=== PATIENT | male | born 1980 | race Caucasian/White ===

== ENCOUNTER → 2020-07-04 14:18 | Outpatient (CLI) | payer BC, SELFPAY ==
--- NOTE | ~2020-07-04 | XR_ITS ---
EXAMINATION: XR_[id number]_CR DATE: 07/04/2020 14:45 INDICATION: Chronic neck pain for greater than 3 months. TECHNIQUE: 4 views of cervical spine were obtained. COMPARISON: Cervical spine radiographs 06/13/2019 FINDINGS: There is 8 degrees levocurvature of cervicothoracic spine. Vertebral body heights are jose carlos l. There is mildly decreased disc height at C5-C6 and C6-C7. There is multilevel facet joint osteoart hritis, moderate on the left at C4-C5 and C5-C6. No central canal stenosis or prevertebral soft tissu e swelling. IMPRESSION: 1. Mild cervical spondylosis. Reviewed, dictated and finalized at location A.
== END ==
PROVIDERS: PCP Nurse Practitioner Family; Visit Provider Nurse Practitioner Family
DX: M47.892 Other spondylosis, cervical region (principal)
CPT/HCPCS: 72040

== ENCOUNTER 2021-06-10 15:27 | Emergency (ER) | payer BC, SELFPAY ==
[2021-06-10 15:37] VITALS: BP 140/89; PULSE 88; RESP 16; TEMP 36.6; O2SAT 99
[2021-06-10 15:43] VITALS: BP 140/89; PULSE 88; RESP 16; TEMP 36.6; O2SAT 99
--- NOTE | 2021-06-10 15:43 | ED.WOUNDLAC ---
HPI - Wound/Laceration General Chief Complaint: Wound/Laceration Stated Complaint: stapel removal Time Seen by Provider: 06/10/21 15:43 Source: patient, family and RN notes reviewed Mode of arrival: ambulatory Limitations: no limitations History of Present Illness HPI narrative: 40-year-old male [facility] to have 11 maryam removed from the left side of his head. Patient states that about 2 weeks ago a 16 foot 2X6 board fell over and hit him in the head causing laceration to the left side of his scalp.Patient states that he did not lose consciousness but he was dazed for a second, had maryam placed in the emergency room at [facility]. Patient denies any residual headaches or any other complaints. Location: scalp Related Data Home Medications Medication Instructions Recorded Confirmed albuterol sulfate INHALATION 06/10/21 montelukast mg 06/10/21 pantoprazole PO 06/10/21 Allergies Allergy/AdvReac Type Severity Reaction Status Date / Time No Known Allergies Allergy Verified 07/29/17 18:24 Review of Systems Review of Systems: CONSTITUTIONAL: Denies fever, chills, or sweats. EYES: Denies visual changes, redness, or discharge. ENT: Denies rhinorrhea, congestion, sore throat, or otalgia. CARDIOVASCULAR: Denies chest pain, palpitations, or edema. RESPIRATORY: Denies cough or dyspnea. GASTROINTESTINAL: Denies abdominal pain, nausea, vomiting, or diarrhea. GENITOURINARY: Denies dysuria or hematuria. SKIN: Denies rash or itching.healed laceration to left side of head parietal region with 11 maryam placed about 2 weeks ago MUSCULOSKELETAL: Denies back pain, joint pain, or myalgia. NEUROLOGIC: Denies headache, numbness, or weakness. PSYCHIATRIC: Denies anxiety or depression. All systems reviewed & are unremarkable except as noted in HPI and below PMFSH Past Medical History Medical History (Updated 06/12/21 @ 15:19 by Georgette Iraheta NP) Asthma C. difficile enteritis Diverticulitis GERD (gastroesophageal reflux disease) Seasonal allergies Sinus infection Surgical History Surgical History (Updated 06/12/21 @ 15:10 by Georgette Iraheta NP) History of rectal surgery perirectal abscess surgical procedure Hx of hand surgery fracture and repair of right middle finger Family History Family History (Updated 06/12/21 @ 15:15 by Georgette Iraheta NP) Mother Cerebrovascular accident Breast cancer Grandparent Acute myocardial infarction Father Rheumatoid arthritis Social History Social History (Updated 06/12/21 @ 15:15 by Georgette Iraheta NP) Smoking status: Heavy tobacco smoker Tobacco type: cigarettes Alcohol intake: current Alcohol use details: rare Substance use: never Living arrangements: alone Gender identity (if verbalized by the patient): Male Comments At time of signature, agree with nursing past medical, surgical, social and family history. There is no relevant family history pertinent to the presenting complaint Exam Narrative: GENERAL: Well-appearing, well-nourished, and in no acute distress. HEAD: Normocephalic, atraumatic. EYES: PERRLA and EOMI.no nystagmus ENT: Nares clear, no rhinorrhea or epistaxis. Mucous membranes moist.TM's normal with good light reflex, throat pink with no lesions exudates or tonsil enlargement. NECK: Supple.no lymphadenopathy CHEST: Clear to auscultation. No respiratory distress. HEART: Regular rate and rhythm. No murmur heard. Normal peripheral pulses. ABDOMEN: Soft, nontender, nondistended, normal active bowel sounds. EXTREMITIES: Normal range of motion. No edema. SKIN: Warm, dry, no rash. NEURO: No focal deficits. Alert and oriented x3.Healed head laceration to left parietal region with removal of 11 maryam completed, states minimal tenderness on palpation, no gaping or any drainage at wound site some scabbing note. Course Vital Signs Vital signs: Vital Signs Temperature 36.6 C 06/10/21 15:37 Pulse Rate 88
== END 2021-06-10 16:10 | disposition home or self-care (01) ==
PROVIDERS: Emergency Provider Registered Nurse
DX: S01.01XD Laceration without foreign body of scalp, subsequent encounter (principal); W20.8XXD Other cause of strike by thrown, projected or falling object, subsequent encounter; J45.909 Unspecified asthma, uncomplicated; K21.9 Gastro-esophageal reflux disease without esophagitis; Z86.19 Personal history of other infectious and parasitic diseases
CPT/HCPCS: 99211; G0463

== ENCOUNTER 2021-10-23 22:14 | Emergency (ER) | payer BC, SELFPAY ==
--- NOTE | ~2021-10-23 | XR_ITS ---
EXAMINATION: XR hand LT min 3V INDICATION: Left hand pain TECHNIQUE: Three views of the left hand are obtained. COMPARISON: None available FINDINGS: There is no fracture, dislocation, or subluxation. No radiopaque foreign body isn't. The sheila int spaces are normal. There is a soft tissue defect between the first and second fingers with associ ated underlying soft tissue swelling. IMPRESSION: 1. Soft tissue defect and underlying soft tissue swelling between the first and second fingers withou t acute osseous abnormality. Reviewed, dictated and finalized at location A. [employer] IMPRESSION: 1. Soft tissue defect and underlying soft tissue swelling between the first and second fingers without acute osseous abnormality.
[2021-10-23 22:24] VITALS: BP 154/81; PULSE 81; RESP 18; TEMP 36.7; O2SAT 100
[2021-10-24 01:38] VITALS: BP 161/89; PULSE 86; RESP 16; O2SAT 100
[2021-10-24] MEDS: HYDROcodone/acetaminophen (*CRX) 5-325 MG TABLET 1 TAB PO (02:49)
--- NOTE | 2021-10-24 04:57 | ED.GENADULT ---
HPI - General Adult General Chief complaint: Animal Bite Stated complaint: dog bite Time Seen by Provider: 10/24/21 02:18 History of Present Illness HPI narrative: Patient is a 40-year-old gentleman who presents the emergency department with chief complaint of dog bite. The patient states that he was watching a dog is up-to-date on its immunizations and reports that he is up-to-date on his tetanus and the dog nipped his left hand. The patient reports he has several lacerations reports that it is painful with movement patient reports no other injuries. Related Data Home Medications Medication Instructions Recorded Confirmed albuterol sulfate INHALATION 06/10/21 montelukast mg 06/10/21 pantoprazole PO 06/10/21 Allergies Allergy/AdvReac Type Severity Reaction Status Date / Time No Known Allergies Allergy Verified 07/29/17 18:24 Review of Systems Review of Systems: A 10 system review of systems was completed on the patient and is negative except for what is stated in the HPI. Nursing and ancillary documentation was reviewed. [facility] Past Medical History Medical History Asthma C. difficile enteritis Diverticulitis GERD (gastroesophageal reflux disease) Seasonal allergies Sinus infection Surgical History Surgical History History of rectal surgery perirectal abscess surgical procedure Hx of hand surgery fracture and repair of right middle finger Family History Family History Mother Cerebrovascular accident Breast cancer Grandparent Acute myocardial infarction Father Rheumatoid arthritis Social History Social History Smoking status: Heavy tobacco smoker Tobacco type: cigarettes Alcohol intake: current Alcohol use details: rare Substance use: never Gender identity (if verbalized by the patient): Male Exam Narrative: GENERAL: Well-appearing, well-nourished, and in no acute distress. HEAD: Normocephalic, atraumatic. EYES: PERRLA and EOMI. ENT: Nares clear, no rhinorrhea or epistaxis. Mucous membranes moist. NECK: Supple. CHEST: Clear to auscultation. No respiratory distress. HEART: Regular rate and rhythm. No murmur heard. Normal peripheral pulses. ABDOMEN: Soft, nontender, nondistended, normal active bowel sounds. EXTREMITIES: Normal range of motion. No edema. There are 3 2 cm lacerations to the left hand 1 in the space between the first and second digit the other one on the thenar eminence and the other 1 medial to any laceration on the thenar eminence SKIN: Warm, dry, no rash. NEURO: No focal deficits. Alert and oriented x3. PSYCH: Normal mood and affect. Course Course Emergency Course: Plain film x-ray of the left hand showed no evidence of fracture or foreign body It is a large area of tissue defect in the hand the wounds were loosely approximated Vital Signs Vital signs: Vital Signs Temperature 36.7 C 10/23/21 22:24 Pulse Rate 81 10/23/21 22:24 Respiratory Rate 18 10/23/21 22:24 Blood Pressure 154/81 H 10/23/21 22:24 Pulse Oximetry 100 10/23/21 22:24 Temperature 36.7 C 10/23/21 22:24 Pulse Rate 86 10/24/21 01:38 Respiratory Rate 16 10/24/21 01:38 Blood Pressure 161/89 H 10/24/21 01:38 Pulse Oximetry 100 10/24/21 01:38 Procedures Laceration Laceration 1: Date: 10/24/21 Time: 04:59 Site: hand Side (If applicable): left Size (cm): 2 Description: stellate Depth: simple, single layer Local Anesthetic: lidocaine 1% Amount of anesthesia used (mL): 3 Pre-repair: wound explored and irrigated ====== Skin Level ====== Skin layer closed with: nylon Size (cm): 4-0 Number of sutures: 3 Technique:
[2021-10-24 05:21] VITALS: PULSE 71; RESP 14
[2021-10-24] MEDS: AMOXICILLIN/CLAVULANATE K 875-125 MG TAB 1 TABLET PO (05:21)
== END 2021-10-24 05:21 | disposition home or self-care (01) ==
PROVIDERS: Emergency Provider Emergency Medicine; PCP Nurse Practitioner Family
DX: S61.452A Open bite of left hand, initial encounter (principal); F17.210 Nicotine dependence, cigarettes, uncomplicated; W54.0XXA Bitten by dog, initial encounter
CPT/HCPCS: 12002; 73130; 99283; A9270

== ENCOUNTER 2022-10-06 07:45 | Outpatient (CLI) | payer BC, SELFPAY | END 2022-10-06 07:46 | disposition home or self-care (01) | LOC: ANHAUDIO 07:45 | PROVIDERS: PCP Internal Medicine; Visit Provider Internal Medicine | DX: H93.19 Tinnitus, unspecified ear (principal) | CPT/HCPCS: 92552; 92556; 92567 ==

== ENCOUNTER 2022-11-02 11:52 | Outpatient (CLI) | payer BC, SELFPAY ==
--- NOTE | 2022-11-10 17:06 | WPDHOMESLEEP ---
Sleep Study - Home Unattended Date of Study: 11/02/22 Ordering Provider: Brady Maddox DO Interpreting Provider: Flor Onofre DO Home Sleep Study Type: Watch KEVYN Height: 1.68 m Weight: 103.419 kg Body Mass Index: 36.8 Neck Circumference (inches): 16.75 Reason for Sleep Study Witnessed apneas, daytime hypersomnia Sleep History The patient is a 41-year-old male with asthma, anxiety, GERD, seasonal allergies and tobacco use that had a sleep study ordered for evaluation of sleep apnea. The patient had a polysomnogram on 04/07/2016 that showed an AHI of 5.7. It was recommended that he have a PAP Titration. He had a SNAP done on 10/24/2019 that showed an AHI of 15.6. He never started treatment. *The patient did not fill out the sleep history forms.* [facility] Past Medical History Medical History Asthma C. difficile enteritis Diverticulitis Excessive somnolence disorder Generalized anxiety disorder GERD (gastroesophageal reflux disease) Seasonal allergies Sinus infection Sleep apnea Surgical History Surgical History History of rectal surgery perirectal abscess surgical procedure Hx of hand surgery fracture and repair of right middle finger Family History Family History Mother Cerebrovascular accident Breast cancer Grandparent Acute myocardial infarction Father Rheumatoid arthritis Social History Social History Smoking status: Heavy tobacco smoker Tobacco type: cigarettes Alcohol intake: current Alcohol use details: rare Substance use: never Lack of Transportation: No Lack of Food: Never True Current Housing: I Have Housing Concerned About Future Housing: No Difficulty Paying Gas/Electric Bills: No Difficulty Paying for Meds: No Currently Unemployed: No Education: High School Diploma/GED Difficulty w/ Childcare or Family Care: No Living arrangements: alone Gender identity (if verbalized by the patient): Male Medications Home Medications Medication Instructions Recorded Confirmed Type albuterol sulfate 90 mcg/actuation inhalation 06/10/21 10/01/22 History aerosol inhaler pantoprazole 40 mg tablet,delayed PO 06/10/21 10/01/22 History release clonazepam 0.5 mg tablet 0.25 - 0.5 mg PO BID PRN anxiety 08/20/22 10/01/22 Rx #30 tabs tadalafil 5 mg tablet 5 mg PO DAILY 08/20/22 10/01/22 History Sleep Procedure The sleep study was completed using OntodiaPAT a technically adequate device with seven channels: peripheral arterial tone, actigraphy, body position, snore, respiratory movement, pulse oximetry, sleep staging, and heart rate. Prior to using the device, the patient received verbal and written instructions for its application and was provided with the help desk phone number for additional telephonic instruction with 24-hour availability of qualified personnel to answer questions. The study was scored using CMS guidelines. Sleep Architecture The patient had a total recording time of 8 hours 4 minutes and total sleep time of 5 hours 4 minutes. The sleep efficiency was 62.95%. Sleep latency was 22 minutes and REM latency was 326 minute. The patient had 26 awakenings. The patient spent 90.16% of total sleep time in light sleep, 2.3% of total sleep time in deep sleep and 7.54% of total sleep time in REM sleep. The patient spent 23.5 minutes, 7.7% total sleep time in the supine position. Respiratory Analysis The patient had an overall AHI 47.6 and a central apnea index of 0. No Madi-Mcarthur respirations were seen. Oximetry Data The patient had an average oxygen saturation of 94% with a minimum of 84% and a maximum 99%. The patient had 231 desaturations that were 4% or greater resulting in an oxygen desaturation index 46.8.
[2022-11-10 17:15] VITALS: BMI 36.8
== END 2022-11-03 13:14 | disposition home or self-care (01) ==
PROVIDERS: PCP Internal Medicine; Visit Provider Internal Medicine
DX: G47.10 Hypersomnia, unspecified (principal); G47.33 Obstructive sleep apnea (adult) (pediatric)
CPT/HCPCS: 95800

== ENCOUNTER 2023-02-25 15:18 | Emergency (ER) | payer BC, SELFPAY ==
[2023-02-25 15:25] VITALS: BP 145/91; PULSE 87; RESP 16; TEMP 37.2; O2SAT 98
--- NOTE | 2023-02-25 15:42 | ED.URI ---
HPI - URI/Sore Throat General Chief Complaint: Upper Respiratory Infection Stated Complaint: SORE THROAT History of Present Illness HPI Narrative: Pt is a 42 y/o male, presents to with 3 week hx of waxing and waning URI symptoms, including nasal congestion, rhinorrhea, post nasal drip and sore/dry throat. He denies fevers at any time since his symptoms began. He does work outdoors and endorses seasonal allergies in the past. He has used Afrin at times and Saline nasal spray with minimal relief. He denies any other modifying factors. Related Data Home Medications Medication Instructions Recorded Confirmed albuterol sulfate 90 mcg/actuation inhalation 06/10/21 12/09/22 aerosol inhaler pantoprazole 40 mg tablet,delayed PO 06/10/21 12/09/22 release tadalafil 5 mg tablet 5 mg PO DAILY 08/20/22 12/09/22 Allergies Allergy/AdvReac Type Severity Reaction Status Date / Time No Known Allergies Allergy Verified 02/25/23 15:24 Review of Systems Constitutional: Comments: negative ENT: Comments: rhinorrhea, nasal congestion, sore throat off and on Respiratory: Comments: cough intermittently PMFSH Past Medical History Medical History (Updated 02/25/23 @ 15:51 by INEZ Diaz) Asthma C. difficile enteritis Diverticulitis Excessive somnolence disorder Generalized anxiety disorder GERD (gastroesophageal reflux disease) Seasonal allergies Sinus infection Sleep apnea Surgical History Surgical History History of rectal surgery perirectal abscess surgical procedure Hx of hand surgery fracture and repair of right middle finger Family History Family History Mother Cerebrovascular accident Breast cancer Grandparent Acute myocardial infarction Father Rheumatoid arthritis Social History Social History Smoking status: Heavy tobacco smoker Tobacco type: cigarettes Alcohol intake: current Alcohol use details: rare Substance use: never Lack of Transportation: No Lack of Food: Never True Current Housing: I Have Housing Concerned About Future Housing: No Difficulty Paying Gas/Electric Bills: No Difficulty Paying for Meds: No Currently Unemployed: No Education: High School Diploma/GED Difficulty w/ Childcare or Family Care: No Living arrangements: alone Gender identity (if verbalized by the patient): Male Exam Const: General: healthy appearing, no acute distress and alert HENMT: Head: normal to inspection Ears: TM abnormal (TM's are retracted bilaterally, no effusion, no erythema) Face/Nose/Sinus: Normal external nose present and Normal nares present Face and sinus: normal facial exam and sinuses nontender Mouth: Yes Normal oral and palatal mucosa present Throat: posterior oropharynx normal and uvula midline Other: mild pharyngeal injection Eyes: Conjunctivae: conjunctivae normal Pupils: Equal, round and reactive pupils present EOM: EOMs intact bilaterally Direct Ophthalmoscopy: no photophobia Neck: Neck: normal visual inspection, no lymphadenopathy and no meningeal signs Resp: Effort & Inspection: normal respiratory effort Auscultation: clear to auscultation bilaterally Cardio: Rate: regular rate Rhythm: regular rhythm Skin: General skin exam: normal color Rashes: no rashes Neuro: General: patient oriented x3, moves all extremities, no meningeal signs and no focal motor deficits Cranial nerves: Yes Nystagmus not present Speech: normal speech Gait exam (Neuro): Normal gait present Extrem: General: normal to inspection Course Course Level of Care: [facility] Visit ([id number]) Vital Signs Vital signs: Vital Signs Temperature 37.2 C 02/25/23 15:25 Pulse Rate 87 02/25/23 15:25 Respiratory Rate 16 02/25/23 15:25 Blood Pressure 145/
== END 2023-02-25 15:58 | disposition home or self-care (01) ==
PROVIDERS: Emergency Provider Nurse Practitioner Family; PCP Internal Medicine
DX: T78.40XA Allergy, unspecified, initial encounter (principal); R09.82 Postnasal drip; F17.210 Nicotine dependence, cigarettes, uncomplicated; J45.909 Unspecified asthma, uncomplicated; K21.9 Gastro-esophageal reflux disease without esophagitis
CPT/HCPCS: 87081; 87880; 99213; G0463

== ENCOUNTER 2023-03-28 13:40 | Emergency (ER) | payer BC, SELFPAY ==
--- NOTE | ~2023-03-28 | XR_ITS ---
EXAMINATION: XR chest 2V 03/28/2023 14:18 INDICATION: Productive cough PROCEDURE: 2 view chest COMPARISON: 11/29/2006 FINDINGS: The lungs are clear. The cardiomediastinal silhouette is within normal limits. There are no pleural effusions. There is no pneumothorax suspected. IMPRESSION: 1: NO ACUTE CARDIOPULMONARY DISEASE. Reviewed, dictated and finalized at location A.
[2023-03-28 13:46] VITALS: BP 176/94; PULSE 74; RESP 16; TEMP 36.3; O2SAT 98
--- NOTE | 2023-03-28 13:50 | ECG_ITS ---
Measurements Intervals [place] Rate: 71 P: -12 [place]: 146 QRS: 70 QRSD: 112 T: 1 QT: 386 QTc: 420 Interpretive Statements SINUS RHYTHM MODERATE INTRAVENTRICULAR CONDUCTION DELAY [110+ ms QRS DURATION] NONSPECIFIC T-WAVE ABNORMALITY WITH PROMINENT U WAVE ABNORMAL ECG NO PREVIOUS ECG AVAILABLE FOR COMPARISON Electronically Signed On 03-29-2023 11:13:40 CDT by Eliazar Fowler M.D.
[2023-03-28 13:54] LABS: Glucose Point of Care 125 mg/dl (65-105)
[2023-03-28 14:29] LABS: Basophils Absolute Auto 0.1 K/mm3 (0.0-0.1); Basophils Percent Auto 0.5 % (0.2-1.2); Eosinophils Percent Auto 0.3 % (0-4.4); Hematocrit 52.6 % (42.0-52.0); Immature Granulocyte Absolute 0.05 K/mm3 (0.00-0.031); Immature Granulocyte Percent A 0.4 % (0-0.5); Lymphocytes Absolute Auto 4.94 K/mm3 (0.9-3.2); Lymphocytes Percent Auto 34.9 % (18.3-44.2); Mean Corpuscular HGB Conc 34.2 g/dl (32-36); Mean Corpuscular Hemoglobin 31.4 pg (26-34); Mean Corpuscular Volume 91.6 fl (80-100); Mean Platelet Volume 9.7 fl (7.4-10.4); Monocytes Percent Auto 7.1 % (2.6-8.5); Neutrophils Percent Auto 56.8 % (45.5-73.1); Platelet Count Result 336 k/mm3 (150-375); Red Blood Count 5.74 M/mm3 (4.6-6.20); Red Cell Distribution Width 13.2 % (11.5-14.5); White Blood Count 14.1 K/mm3 (4.5-10.0)
[2023-03-28 14:39] LABS: Alanine Aminotransferase 39 U/L (6-50); Albumin Level 4.4 g/dL (3.5-5.1); Alkaline Phosphatase 49 U/L (38-126); Anion Gap 7 mmol/L (8-16); Aspartate Amino Transferase 25 U/L (17-59); Bilirubin,Total 0.6 mg/dL (0.2-1.3); Blood Urea Nitrogen 13 mg/dL (9-20); Calcium 8.6 mg/dL (8.4-10.2); Carbon Dioxide 28 mmol/L (22-30); Chloride 103 mmol/L (98-107); Estimated CRCL calculation 120 ml/min; Estimated Glomerular Filt Rate > 60; Glucose 118 mg/dL (65-110); Lipase 53 U/L (23-300); Potassium 3.3 mmol/L (3.4-5.0); Sodium 138 mmol/L (137-145)
[2023-03-28 14:46] LABS: Prothrombin Time 13.3 Seconds (11.1-14.7)
[2023-03-28 14:47] LABS: Partial Thromboplastin Time 28.7 SECONDS (22.3-36.8)
[2023-03-28 14:50] LABS: Troponin I < 0.012 ng/mL (0.000-0.034)
[2023-03-28 16:25] VITALS: BP 163/94; PULSE 71; RESP 17; O2SAT 100
--- NOTE | 2023-03-28 16:28 | ED.GENADULT ---
HPI - General Adult General Chief complaint: Unspecified Stated complaint: I'm not feeling well. Time Seen by Provider: 03/28/23 16:15 History of Present Illness HPI narrative: Patient is a 42-year-old male here for evaluation of jitteriness, anxiety, restlessness x2 days. Patient states that he was treated for a sinus infection with antibiotics and steroids. He has been taking these medicines as prescribed, and on day 2 of the prednisone he started to feel jittery, however his upper respiratory infectious symptoms have improved. He denies any chest pain, shortness of breath, fevers or chills, nausea or vomiting. He has some degree of chronic abdominal pain due to IBS, no worse than usual. No diarrhea or constipation. Related Data Home Medications Medication Instructions Recorded Confirmed albuterol sulfate 90 mcg/actuation 90 mcg inhalation USEASDIRECTD 06/10/21 03/19/23 aerosol inhaler pantoprazole 40 mg tablet,delayed 40 mg PO BID 06/10/21 03/19/23 release tadalafil 5 mg tablet 5 mg PO DAILY 08/20/22 03/19/23 sertraline 25 mg tablet 25 mg PO DAILY 02/25/23 03/19/23 testosterone cypionate 200 mg/mL 200 mg IM ONCE 03/19/23 03/19/23 intramuscular oil Allergies Allergy/AdvReac Type Severity Reaction Status Date / Time No Known Allergies Allergy Verified 03/28/23 16:25 Review of Systems Review of Systems: Gen: Reports jitteriness Eyes: Denies eye pain or visual change ENT: Reports congestion Respiratory: Denies shortness of breath or cough CV: Denies chest pain or palpitations GI: Denies abdominal pain nausea, emesis or diarrhea : denies burning, urgency, frequency or hematuria Musculoskeletal: Denies back pain or muscle pain Neuro: Denies numbness, tingling, weakness or focal weakness Skin: Denies rash Except as documented, all other systems reviewed and negative [facility] Past Medical History Medical History Asthma C. difficile enteritis Diverticulitis Excessive somnolence disorder Generalized anxiety disorder GERD (gastroesophageal reflux disease) Seasonal allergies Sinus infection Sleep apnea Surgical History Surgical History History of rectal surgery perirectal abscess surgical procedure Hx of hand surgery fracture and repair of right middle finger Family History Family History Mother Cerebrovascular accident Breast cancer Grandparent Acute myocardial infarction Father Rheumatoid arthritis Social History Social History Smoking status: Heavy tobacco smoker Tobacco type: cigarettes Alcohol intake: current Alcohol use details: rare Substance use: never Lack of Transportation: No Lack of Food: Never True Current Housing: I Have Housing Concerned About Future Housing: No Difficulty Paying Gas/Electric Bills: No Difficulty Paying for Meds: No Currently Unemployed: No Education: High School Diploma/GED Difficulty w/ Childcare or Family Care: No Living arrangements: alone Gender identity (if verbalized by the patient): Male Exam Narrative: APPEARANCE: Well appearing, no pain in distress, well-nourished. Head: Normocephalic and atraumatic. EYES: PERRLA/EOMI, conjunctivae clear NOSE: No nasal drainage EARS: External ear normal in appearance THROAT: Oropharynx is clear. Mucous membranes are moist. NECK: Supple. No adenopathy, no masses. RESPIRATORY: Airway patent, respirations nonlabored. Clear to auscultation bilaterally, no rales, rhonchi, wheezing. CARDIOVASCULAR: Regular rate and rhythm without murmurs, rubs, or gallops. ABDOMINAL: Normoactive bowel sounds. Soft, nontender, nondistended. No rebound tenderness or guarding. MUSCULOSKELETAL: Extremities are warm and well-perfused. Moves all extremities well. No
[2023-03-28 16:58] VITALS: BP 154/85; PULSE 72; RESP 16; O2SAT 98
== END 2023-03-28 16:58 | disposition home or self-care (01) ==
PROVIDERS: Emergency Medicine; Emergency Provider Physician Assistant; PCP Internal Medicine
DX: R45.1 Restlessness and agitation (principal); F41.9 Anxiety disorder, unspecified; T38.0X5A Adverse effect of glucocorticoids and synthetic analogues, initial encounter; J45.909 Unspecified asthma, uncomplicated; K58.9 Irritable bowel syndrome, unspecified; K21.9 Gastro-esophageal reflux disease without esophagitis; G47.30 Sleep apnea, unspecified; F17.210 Nicotine dependence, cigarettes, uncomplicated; I45.89 Other specified conduction disorders; R94.31 Abnormal electrocardiogram [ECG] [EKG]
CPT/HCPCS: 36415; 71046; 80053; 82948; 83690; 84484; 85025; 85610; 85730; 93005; 99284

== ENCOUNTER 2023-10-07 08:55 | Outpatient (CLI) | payer BC, SELFPAY ==
[2023-10-07 12:05] LABS: Basophils Absolute Auto 0.1 K/mm3 (0.0-0.1); Basophils Percent Auto 0.8 % (0.2-1.2); Eosinophils Absolute Auto 0.1 K/mm3 (0-0.3); Eosinophils Percent Auto 1.6 % (0-4.4); Hematocrit 53.4 % (42.0-52.0); Hemoglobin 17.8 g/dL (14.0-18.0); Immature Granulocyte Absolute 0.02 K/mm3 (0.00-0.031); Immature Granulocyte Percent A 0.3 % (0-0.5); Lymphocytes Absolute Auto 2.27 K/mm3 (0.9-3.2); Lymphocytes Percent Auto 29.7 % (18.3-44.2); Mean Corpuscular HGB Conc 33.3 g/dl (32-36); Mean Corpuscular Hemoglobin 30.6 pg (26-34); Mean Corpuscular Volume 91.8 fl (80-100); Mean Platelet Volume 10.2 fl (7.4-10.4); Monocytes Absolute Auto 0.9 K/mm3 (0.1-0.6); Monocytes Percent Auto 11.1 % (2.6-8.5); Neutrophils Absolute Auto 4.3 K/mm3 (1.3-6.7); Neutrophils Percent Auto 56.5 % (45.5-73.1); Platelet Count Result 301 k/mm3 (150-375); Red Blood Count 5.82 M/mm3 (4.6-6.20); Red Cell Distribution Width 13.2 % (11.5-14.5); White Blood Count 7.7 K/mm3 (4.5-10.0)
[2023-10-07 12:13] LABS: Alanine Aminotransferase 25 U/L (6-50); Albumin Level 4.4 g/dL (3.5-5.1); Alkaline Phosphatase 51 U/L (38-126); Anion Gap 7 mmol/L (8-16); Aspartate Amino Transferase 36 U/L (17-59); Bilirubin,Total 0.7 mg/dL (0.2-1.3); Blood Urea Nitrogen 12 mg/dL (9-20); Calcium 9.6 mg/dL (8.4-10.2); Carbon Dioxide 28 mmol/L (22-30); Chloride 105 mmol/L (98-107); Cholesterol 205 mg/dL (0-200); Estimated Glomerular Filt Rate > 60; Glucose 114 mg/dL (65-110); HDL Direct 33 mg/dL; Potassium 4.3 mmol/L (3.4-5.0); Sodium 140 mmol/L (137-145); Triglycerides 83 mg/dL (<150)
[2023-10-07 12:23] LABS: LDL Cholesterol Direct 138 mg/dL
[2023-10-07 21:00] LABS: Hemoglobin A1C 5.6 % (<5.7)
== END 2023-10-07 08:56 | disposition home or self-care (01) ==
PROVIDERS: PCP Internal Medicine; Visit Provider Nurse Practitioner
DX: Z13.220 Encounter for screening for lipoid disorders (principal); Z13.29 Encounter for screening for other suspected endocrine disorder; R73.9 Hyperglycemia, unspecified
CPT/HCPCS: 36415; 80053; 80061; 83036; 85025

== ENCOUNTER 2023-10-18 13:23 | Emergency (ER) | payer BC, SELFPAY ==
[2023-10-18 13:52] VITALS: BP 138/86; PULSE 71; RESP 18; O2SAT 98
--- NOTE | 2023-10-18 13:52 | ED.EAR ---
HPI - Ear Problem General Chief complaint: Ear Stated complaint: can't hear/left ear, sinus prob,slick Time Seen by Provider: 10/18/23 13:52 Source: patient and RN notes reviewed Mode of arrival: ambulatory Limitations: no limitations History of Present Illness HPI Narrative: 42-year-old male presents with concern for left ear pain, decreased hearing, sinus congestion. Reports symptoms started on , he started having allergy symptoms and then when he flew on a plane he had sudden pain in his left ear. He reports since then he has had ear pain. He denies drainage. Reports he has been taking ipwh-wby-avneziy medications without much relief MD Complaint: ear pain Related Data Home Medications Medication Instructions Recorded Confirmed pantoprazole 40 mg tablet,delayed 40 mg PO BID 06/10/21 10/18/23 release fexofenadine-pseudoephedrine ER 1 tablet PO .every other day 10/07/23 10/18/23 180 mg-240 mg tablet,ext.release 24 hr (Dora-D 24 Hour) testosterone cypionate 200 mg/mL 200 mg IM WEEKLY 10/07/23 10/18/23 intramuscular oil Allergies Allergy/AdvReac Type Severity Reaction Status Date / Time No Known Allergies Allergy Verified 10/18/23 13:46 Review of Systems Review of Systems: CONSTITUTIONAL: Denies malaise, chills, sweats, or fever. EYES: Denies visual changes, redness, or discharge. ENT: Reports rhinorrhea, congestion, left ear pain CARDIOVASCULAR: Denies chest pain, palpitations, or edema. RESPIRATORY: Denies cough. Denies dyspnea. GASTROINTESTINAL: Denies abdominal pain, nausea, vomiting, diarrhea SKIN: Denies rash or itching. MUSCULOSKELETAL: Denies myalgia. NEUROLOGIC: Denies headache. All systems reviewed & are unremarkable except as noted in HPI and below PMFSH Past Medical History Medical History Asthma C. difficile enteritis Diverticulitis Excessive somnolence disorder Generalized anxiety disorder GERD (gastroesophageal reflux disease) Seasonal allergies Sinus infection Sleep apnea Surgical History Surgical History History of rectal surgery perirectal abscess surgical procedure Hx of hand surgery fracture and repair of right middle finger Family History Family History Mother Cerebrovascular accident Breast cancer Grandparent Acute myocardial infarction Father Rheumatoid arthritis Lung cancer Social History Social History Smoking status: Heavy tobacco smoker Tobacco type: cigarettes Alcohol intake: current Alcohol use details: rare Substance use: never Lack of Transportation: No Lack of Food: Never True Current Housing: I Have Housing Concerned About Future Housing: No Difficulty Paying Gas/Electric Bills: No Difficulty Paying for Meds: No Currently Unemployed: No Education: High School Diploma/GED Difficulty w/ Childcare or Family Care: No Living arrangements: alone Gender identity (if verbalized by the patient): Male Comments At time of signature, agree with nursing past medical, surgical, social and family history. There is no relevant family history pertinent to the presenting complaint Exam Narrative: GENERAL: Well-appearing, well-nourished, and in no acute distress. HEAD: Normocephalic EYES: PERRLA, conjunctivae clear ENT: Nares clear. Mucous membranes moist. TM erythematous bilaterally, bulging on the left; no tragal tenderness. Oropharynx not erythematous without lesions. Tonsils not enlarged and without exudate, no drooling, no hoarseness, no trismus, uvula midline. NECK: Supple. No lymphadenopathy CHEST: Clear to auscultation, breath sounds equal. No wheezing, rhonchi, rales, or stridor. No respiratory distress, speaks in full sentences. HEART: Regular rate and rhythm. No murmur heard.
== END 2023-10-18 14:07 | disposition home or self-care (01) ==
PROVIDERS: Emergency Provider Nurse Practitioner; PCP Internal Medicine
DX: H66.92 Otitis media, unspecified, left ear (principal); F17.210 Nicotine dependence, cigarettes, uncomplicated; J45.909 Unspecified asthma, uncomplicated; K21.9 Gastro-esophageal reflux disease without esophagitis; F41.1 Generalized anxiety disorder
CPT/HCPCS: 99213; G0463

== ENCOUNTER 2024-01-25 00:39 | Day surgery (SDC) | payer BC, SELFPAY ==
--- NOTE | 2024-01-12 14:30 | SUR.PREOP ---
Report to the Outpatient Waiting Room, entrance under the green pavilion located off [facility], at time 0830 on date 01/25/24. Planned Procedure Time: 1030. Time changes happen often and if your time is changed the preop area will call you the afternoon before. - You and your visitor will be asked to self-screen and do not enter if you have any COVID symptoms. - A mask is optional within the hospital at this time. Patients may have clear liquids (water, carbonated beverages, clear teas, apple juice) until 3 hours prior to surgery with a maximum of 20 ounces. - NO CLEAR LIQUIDS AFTER 0730 - No food from midnight until time of surgery - Infants may have breast milk until 4 hours before surgery, infant formula 6 hours prior to surgery. - Children will be allowed to drink immediately following surgery. If applicable, please bring a bottle or sippy cup to assist with drinking. Juice, water, soda, and popsicles are readily available. For infants on formula, please bring formula the day of surgery. Pacifiers are allowed. Take the following medications with a SIP of water the morning of surgery: BRING ALBUTEROL INHALER WITH YOU THE DAY OF SURGERY DO NOT STOP ANY OF YOUR OTHER PRESCRIPTION MEDICATIONS PRIOR TO SURGERY ?EXCEPT THE FOLLOWING Medications to discontinue per physician N/A Date to take last dose Please no make-up, nail ivorian, hairspray, perfume, deodorant, or body powder the day of surgery. No jewelry (including any body piercings) or valuables the day of surgery, leave them at home. Please take a shower or bath the night before, or the morning of, surgery with an antibacterial soap. Wear comfortable, loose fitting clothing. Children are encouraged to wear pajamas. - Jewelry must be removed prior to entering the operating room. Rings and piercings that are not removed may be cut off. - The hospital will not accept responsibility for valuables. - Please leave all valuables, including medications, at home the day of surgery. If you are going home after surgery, a licensed line haul driver must drive you home. - NO public transportation without another adult if you receive anesthesia. - We recommend that an adult stay with you for 24 hours following discharge. - We also recommend that you do not drive, make important decision, drink alcoholic beverages, or take any drugs that were not prescribed by your health care provider for at least 24 hours after your discharge time. For Pediatric surgeries, we recommend two adults accompany the child home. Follow any additional instructions given to you from your surgeon. If you or anyone in your household have experienced Covid symptoms in the past week, please notify your surgeon or the nurse liaison at the phone number below for possible testing. Telephone instructions given to LEXI KAY and asked if any additional questions and then verbalized understanding. Patient advised to call surgeon office or pre surgery nurse liaison [phone] if any additional questions.
[2024-01-12 14:42] VITALS: BMI 35.2
--- NOTE | 2024-01-24 17:01 | PM.IMHP ---
H&P: HPI History of Present Illness Date/Time: 01/24/24 17:01 Chief Complaint: lower lip mucocele Narrative: planned procedure Review of Systems Review of Systems: All systems reviewed & are unremarkable except as noted in HPI and below PMFSH Past Medical History Medical History Asthma C. difficile enteritis Diverticulitis Excessive somnolence disorder Generalized anxiety disorder GERD (gastroesophageal reflux disease) Seasonal allergies Sinus infection Sleep apnea Surgical History Surgical History History of rectal surgery perirectal abscess surgical procedure Hx of hand surgery fracture and repair of right middle finger Family History Family History Mother Cerebrovascular accident Breast cancer Grandparent Acute myocardial infarction Father Rheumatoid arthritis Lung cancer Social History Social History Smoking packs per day: 1 Smoking cigarettes per day: 20.0 Years smoked: 20 Smoking pack-years: 20.00 Smoking status: Heavy tobacco smoker Tobacco type: cigarettes Alcohol intake: current Alcohol use details: rare Substance use: never Lack of Transportation: No Lack of Food: Never True Current Housing: I Have Housing Concerned About Future Housing: No Difficulty Paying Gas/Electric Bills: No Difficulty Paying for Meds: No Currently Unemployed: No Education: High School Diploma/GED Difficulty w/ Childcare or Family Care: No Living arrangements: alone Gender identity (if verbalized by the patient): Male Spiritual care concerns: No Meds Home Medications and Allergies Home Medications Medication Instructions Recorded Confirmed Type clonazepam 0.5 mg tablet 0.25 - 0.5 mg PO BID PRN anxiety 03/29/23 01/12/24 Rx #30 tabs albuterol sulfate 90 mcg/actuation 1 inh inhalation Q4H PRN shortness 09/22/23 01/12/24 Rx aerosol inhaler of breath or wheezing #8.5 grams fexofenadine-pseudoephedrine ER 1 tablet PO .every other day 10/07/23 01/12/24 History 180 mg-240 mg tablet,ext.release 24 hr (Dora-D 24 Hour) testosterone cypionate 200 mg/mL 200 mg IM WEEKLY 10/07/23 01/12/24 History intramuscular oil azelastine 137 mcg (0.1 %) nasal 1 spray intranasal BID 10/26/23 01/12/24 History spray aerosol cetirizine 10 mg tablet (Wal-Zyr 10 mg PO DAILY 10/26/23 01/12/24 History (cetirizine)) pantoprazole 40 mg tablet,delayed 40 mg PO DAILY 01/10/24 01/12/24 History release tadalafil 5 mg tablet 5 mg PO DAILY 01/12/24 01/12/24 History Allergies Allergy/AdvReac Type Severity Reaction Status Date / Time No Known Allergies Allergy Verified 01/10/24 14:21 Exam Narrative: lower lip mucocele Assessment and Plan Assessment and plan (1) Mucocele of lower lip: Code(s): K13.0 - Diseases of lips Status: Acute Assessment and Plan: plan or excision of lower lip mucocele. Risks discussed bleeding infection damage to surrounding structures need for further procedures recurrence of mucocele change in cosmetic appearance. Need for time off work time off school and her risk of narcotic use. Patient voiced understanding and agreed. Will need needle-tip Bovie very small bipolar. LMA okay.
[2024-01-25] VITALS (8 sets, daily range): BP systolic 101–149; BP diastolic 54–85; PULSE 61–77; RESP 16–18; TEMP 36.3–36.8; O2SAT 97–100; BMI 35.8
--- NOTE | 2024-01-25 07:19 | WPDHPUPDATE1 ---
History and Physical Update Update Date/Time: 01/25/24 07:19 History and Physical has been reviewed, including an updated exam of the patient. There are NO changes in the patient's condition. Risks, benefits, and alternatives have been discussed and questions answered. Patient agrees to proceed with procedure.
[2024-01-25] MEDS: LACTATED RINGERS 1,000 ML 30 ML IV CONT ×2 (09:55→13:37)
--- NOTE | 2024-01-25 11:02 | WPDANESEPPF ---
Anes - Initial Pre Proc Eval Procedure: Operation Date: 01/25/24 11:30 Proposed Procedures p Excision of Mucocele Lower Lip - Shady Silver MD Date/Time: 01/25/24 11:02 Surgeon: Shady Silver MD Pre Op Diagnosis: Lower Lip Mucocele Patient Data Age: 43 Gender: M Height: 1.68 m Weight: 100.7 kg Last Vital Signs Temp 36.8 C 01/25/24 09:45 Pulse 72 01/25/24 09:45 Resp 16 01/25/24 09:45 BP 149/85 H 01/25/24 09:45 Pulse Ox 100 01/25/24 09:45 O2 Del Method Room Air 01/25/24 09:45 Allergies Allergy/AdvReac Type Severity Reaction Status Date / Time No Known Allergies Allergy Verified 01/25/24 10:12 Home Medications Medication Instructions Recorded Confirmed Type clonazepam 0.5 mg tablet 0.25 - 0.5 mg PO BID PRN anxiety 03/29/23 01/12/24 Rx #30 tabs albuterol sulfate 90 mcg/actuation 1 inh inhalation Q4H PRN shortness 09/22/23 01/12/24 Rx aerosol inhaler of breath or wheezing #8.5 grams fexofenadine-pseudoephedrine ER 1 tablet PO .every other day 10/07/23 01/12/24 History 180 mg-240 mg tablet,ext.release 24 hr (Dora-D 24 Hour) testosterone cypionate 200 mg/mL 200 mg IM WEEKLY 10/07/23 01/12/24 History intramuscular oil azelastine 137 mcg (0.1 %) nasal 1 spray intranasal BID 10/26/23 01/12/24 History spray aerosol cetirizine 10 mg tablet (Wal-Zyr 10 mg PO DAILY 10/26/23 01/12/24 History (cetirizine)) pantoprazole 40 mg tablet,delayed 40 mg PO DAILY 01/10/24 01/12/24 History release tadalafil 5 mg tablet 5 mg PO DAILY 01/12/24 01/12/24 History Patient hx anesthesia problems: none Family hx anesthesia problems: none Results Review: All pre-operative results and documents have been reviewed as part of the pre-operative evaluation. [facility] Past Medical History Medical History Asthma C. difficile enteritis Diverticulitis Excessive somnolence disorder Generalized anxiety disorder GERD (gastroesophageal reflux disease) Seasonal allergies Sinus infection Sleep apnea Surgical History Surgical History History of rectal surgery perirectal abscess surgical procedure Hx of hand surgery fracture and repair of right middle finger Family History Family History Mother Cerebrovascular accident Breast cancer Grandparent Acute myocardial infarction Father Rheumatoid arthritis Lung cancer Social History Social History Smoking packs per day: 1 Smoking cigarettes per day: 20.0 Years smoked: 20 Smoking pack-years: 20.00 Smoking status: Heavy tobacco smoker Tobacco type: cigarettes Alcohol intake: current Alcohol use details: rare Substance use: never Lack of Transportation: No Lack of Food: Never True Current Housing: I Have Housing Concerned About Future Housing: No Difficulty Paying Gas/Electric Bills: No Difficulty Paying for Meds: No Currently Unemployed: No Education: High School Diploma/GED Difficulty w/ Childcare or Family Care: No Living arrangements: alone Gender identity (if verbalized by the patient): Male Spiritual care concerns: No Anes - Eval Final PreProcedure Day of Procedure 01/25/24 11:02 Patient weight: obese Heart: regular rate and rhythm Lungs: clear to auscultation Airway: Mallampati scale class II Neurological: alert and oriented Last oral intake: >/= 8 hours ASA classification: III Emergent: no Anesthetic plan: proceed Anesthesia type and monitoring: general LMA and standard monitoring Results Review: All pre-operative results and documents have been reviewed as part of the pre-operative evaluation. Informed Consent: The patient's anesthetic plan and its attendant risks and benefits were discussed with the patient/family/POA. Questions were solicited and
--- NOTE | 2024-01-25 11:40 | SUR.PREOP ---
1140- Patient to restroom to void and discussed procedure start time delay. Patient verbalized understanding and denying additional needs.
[2024-01-25] MEDS: ceFAZolin 2 GM/D5W 50 ML 2 GM/50 ML BAG IVPB (12:16)
[2024-01-25] MEDS: LIDO 1%/EPINEPHRINE 1:100,000 50 ML VIAL 10 ML INFILTRATE (12:16)
--- NOTE | 2024-01-25 13:38 | SUR.PHASEI ---
1338: Simple mask removed.
--- NOTE | 2024-01-25 13:51 | P.OP_ITS ---
Procedure Note - Detailed Date of Procedure 01/25/24 Pre-op Diagnosis Lower Lip Mucocele Post-op Diagnosis Same Procedure Performed excision of lower lip mucocele Surgeon Shady Silver MD Anesthesia General ( LMA) Findings indications see above findings several cm mucocele lobulated left lower lip excised minimal bleeding good closure. No complications. Description of Procedure Patient identified consent verified preop. Patient brought operating. Time-out performed. General anesthesia induced LMA secured. Patient prepped draped position procedure confirmed. Total 0.5 cc 1% lidocaine 1 100,000 parts epinephrine injected around the mucocele. And ellipse. Fifteen blade utilized to cut mucosa needle-tip protected Bovie on a setting of 5 utilized to cut through the mucosa further and then on coag to outline the mucocele blunt dissection with sharp curved [employer] sharp curved iris scissors I utilized palate mucocele any bleeding controlled with bipolar electrocautery setting of 5 intermittently Bovie electrocautery at a setting of 5 also utilized. Mucocele removed down to the muscular layer. Wound then copiously irrigated. Five interrupted 5 0 fast gut sorry 5 interrupted 4-0 chromic sutures placed to close the incision good closure minimal bleeding. No complications. Patient tolerated the procedure well a blood loss 2 cc. I performed all dictated portions procedure no complications patient taken to PACU. Estimated Blood Loss 2 Drains No Packing No Pathology Yes Complications No immediate complications Condition Stable Disposition PACU [facility] Billing Surgery - Charge Forward: Surgery Billing
== END 2024-01-25 15:07 | disposition home or self-care (01) ==
PROVIDERS: PCP Internal Medicine; Visit Provider Otolaryngology
PROC: (CPT 40810; principal; 2024-01-25 11:30)
DX: K13.0 Diseases of lips (principal); K21.9 Gastro-esophageal reflux disease without esophagitis; F41.1 Generalized anxiety disorder; G47.30 Sleep apnea, unspecified; F17.210 Nicotine dependence, cigarettes, uncomplicated; E66.9 Obesity, unspecified; Z68.35 Body mass index [BMI] 35.0-35.9, adult; Z79.51 Long term (current) use of inhaled steroids
CPT/HCPCS: 40812; 88305; J0690; J1100; J2250; J2405; J2704; J3010; J7120

== ENCOUNTER 2024-02-18 07:30 | Outpatient (RCR) | payer BC, SELFPAY ==
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
--- NOTE | 2024-02-02 10:07 | OPREHPOC ---
Outpatient Therapy Plan of Care This is a Multidisciplinary Plan of Care that may contain components documented by all disciplines (PT, OT, and ST.) PT Problem 1 PT Problem #1 Knowledge Deficit PT Goal 1 Goal * indep with HEP PT Problem 2 PT Problem #2 Pain PT Goal 1 Goal 1* pain rating at worst in neck of 5/10 2* Self rating of Neck Disability Index 40% limitation 3* pt report migraine duration of 8 hours at most PT Problem 3 PT Problem #3 Impaired Flexibility PT Goal 1 Goal improve cervical ROM to increase ability to do work and driving tasks 1* rotation R 60' 2* rotation L 65' PT Problem 4 PT Problem #4 Impaired Strength PT Goal 1 Goal 1* increase cervical strength: pt able to maintain good neck position with exercises 2* increase scapular strength-pt maintain good shoulder position with exercises
--- NOTE | 2024-02-11 09:36 | PCPTNOTE ---
Patient no show for today's appointment.
--- NOTE | 2024-03-07 11:54 | PTOPDC ---
Assessment and note entered by Ariane Padron, PT Discharge Information Assessment Status Discharge - Pt Not Present Diagnosis dizziness, cervicalgia Onset Oct 2023 Subjective Information pt was not seen this date. Assessment PT Clinical Summary Deni received the PT evaluation and 1 treatment session. He did not show for 3 appointments. Discharge PT due to not attending. The goals were not addressed. Plan of Care PT Services Indicated No
--- NOTE | 2024-03-07 12:32 | PCPTNOTE ---
No show, called left voicemail notice of d/c secondary to 3rd no show.
== END 2024-03-07 13:09 | disposition home or self-care (01) ==
LOC: ANHPT 07:30
PROVIDERS: PCP Internal Medicine; Visit Provider Otolaryngology
DX: R42 Dizziness and giddiness (principal)
CPT/HCPCS: 97014; 97110; 97162; 97530; 99199; G0283

== ENCOUNTER 2024-03-25 13:59 | Emergency (ER) | payer BC, SELFPAY ==
--- NOTE | 2024-03-25 14:02 | ED.URI ---
HPI - URI/Sore Throat General Chief Complaint: Upper Respiratory Infection Stated Complaint: Sore Throat Time Seen by Provider: 03/25/24 14:19 Source: patient, RN notes reviewed and old records reviewed Mode of arrival: ambulatory Limitations: no limitations History of Present Illness HPI Narrative: 43-year-old male presents to the [facility] with complaints of a sore throat x3 weeks. Denies any symptoms other than sore throat. Has tried drops ibuprofen. Related Data Home Medications Medication Instructions Recorded Confirmed fexofenadine-pseudoephedrine ER 1 tablet PO .every other day 10/07/23 01/12/24 180 mg-240 mg tablet,ext.release 24 hr (Dora-D 24 Hour) testosterone cypionate 200 mg/mL 200 mg IM WEEKLY 10/07/23 01/12/24 intramuscular oil azelastine 137 mcg (0.1 %) nasal 1 spray intranasal BID 10/26/23 03/25/24 spray aerosol cetirizine 10 mg tablet (Wal-Zyr 10 mg PO DAILY 10/26/23 03/25/24 (cetirizine)) pantoprazole 40 mg tablet,delayed 40 mg PO DAILY 01/10/24 03/25/24 release tadalafil 5 mg tablet 5 mg PO DAILY 01/12/24 03/25/24 Allergies Allergy/AdvReac Type Severity Reaction Status Date / Time No Known Allergies Allergy Verified 03/25/24 14:09 Review of Systems Review of Systems: All systems reviewed & are unremarkable except as noted in HPI and below Constitutional: Constitutional: Reports no additional constitutional complaints Eyes: Eyes: Reports no additional eye complaints ENT: Reports as per HPI and Reports sore throat Cardiovascular: Cardiovascular: Reports no additional cardiovascular complaints, Denies chest pain and Denies dyspnea Respiratory: Respiratory: Reports no additional respiratory complaints, Denies chest congestion, Denies cough and Denies dyspnea Gastrointestinal: Gastrointestinal: Reports no additional gastrointestinal complaints, Denies abdominal pain, Denies nausea and Denies vomiting Musculoskeletal: Musculoskeletal: Reports no additional musculoskeletal complaints Integumentary/Breasts: Skin/Breast: Reports system reviewed and no additional complaints, except as docu Neurologic: Reports system reviewed and no additional complaints, except as documented Psychiatric: Psychiatric: Reports no additional psychiatric complaints Allergic/Immunologic: Allergic/Immunologic: Reports no additional allergic/immunologic complaints PMFSH Past Medical History Medical History Asthma C. difficile enteritis Diverticulitis Excessive somnolence disorder Generalized anxiety disorder GERD (gastroesophageal reflux disease) Seasonal allergies Sinus infection Sleep apnea Surgical History Surgical History History of rectal surgery perirectal abscess surgical procedure Hx of hand surgery fracture and repair of right middle finger Family History Family History Mother Cerebrovascular accident Breast cancer Grandparent Acute myocardial infarction Father Rheumatoid arthritis Lung cancer Social History Social History Smoking packs per day: 1 Smoking cigarettes per day: 20.0 Years smoked: 20 Smoking pack-years: 20.00 Smoking status: Heavy tobacco smoker Tobacco type: cigarettes Alcohol intake: current Alcohol use details: rare Substance use: never Lack of Transportation: No Lack of Food: Never True Current Housing: I Have Housing Concerned About Future Housing: No Difficulty Paying Gas/Electric Bills: No Difficulty Paying for Meds: No Currently Unemployed: No Education: High School Diploma/GED Difficulty w/ Childcare or Family Care: No Living arrangements: alone Gender identity (if verbalized by the patient): Male Spiritual care concerns: No Comments At the time of my signature, I reviewed an
[2024-03-25 14:22] VITALS: BP 159/80; PULSE 96; RESP 14; TEMP 37.7; O2SAT 98
== END 2024-03-25 14:45 | disposition home or self-care (01) ==
PROVIDERS: Emergency Provider Nurse Practitioner; PCP Internal Medicine
DX: J02.9 Acute pharyngitis, unspecified (principal); R09.82 Postnasal drip; J45.909 Unspecified asthma, uncomplicated; K21.9 Gastro-esophageal reflux disease without esophagitis
CPT/HCPCS: 87081; 87880; 99213; G0463

== ENCOUNTER 2024-08-26 10:38 | Outpatient (CLI) | payer BC, SELFPAY ==
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
== END 2024-08-26 10:39 | disposition home or self-care (01) ==
PROVIDERS: PCP Internal Medicine; Visit Provider Psychiatry & Neurology Neurology
DX: Z87.828 Personal history of other (healed) physical injury and trauma (principal)
CPT/HCPCS: 70551

== ENCOUNTER 2025-04-17 16:35 | Emergency (ER) | payer BC, SELFPAY ==
[2025-04-17 16:48] VITALS: BP 159/90; PULSE 87; RESP 16; TEMP 37.2; O2SAT 98
--- NOTE | 2025-04-17 19:12 | ED_ITS ---
HPI - Nausea/Vomiting/Diarrhea General Chief complaint: Nausea/Vomiting/Diarrhea Stated complaint: abdomen pain and vomiting Time Seen by Provider: 04/17/25 17:15 Source: patient and RN notes reviewed Mode of arrival: ambulatory Limitations: no limitations History of Present Illness HPI Narrative: 50-year-old male presents Express Care complaining abdominal pain, nausea, vomiting, loose stools, fatigue approximately 4 days. Patient has a history of diverticulitis. Patient reports having pain primarily in his umbilical region. Patient said 4 days ago said he did drink some alcohol but denies drinking excessive amount, and later that evening he developed abdominal pain along with nausea and vomiting. Has not vomited since. Patient states every time he eats he feels very nauseous. Patient also reports having loose stools. Patient reports that sharp pain in the middle of his abdomen. Patient is unable to get to his primary for another 2 months so he would not pay for his own lab work at [facility] any said that he had a elevated white blood cell count. Patient denies any urinary symptoms, vomiting blood, blood in his stool, fevers, body aches, chills, chest pains, difficulty breathing, or any other symptoms Related Data Home Medications ?Medication ?Instructions ?Recorded ?Confirmed ?Last Taken ?Type fexofenadine-pseudoephedrine ER 1 tablet PO .every other day 10/07/23 05/18/24 Unknown History 180 mg-240 mg tablet,ext.release 24 hr (Dora-D 24 Hour) testosterone cypionate 200 mg/mL 200 mg IM WEEKLY 10/07/23 05/18/24 Unknown History intramuscular oil azelastine 137 mcg (0.1 %) nasal 1 spray intranasal BID 10/26/23 05/18/24 Unknown History spray pantoprazole 40 mg tablet,delayed 40 mg PO DAILY 01/10/24 05/18/24 Unknown History release tadalafil 5 mg tablet 5 mg PO DAILY 01/12/24 05/18/24 Unknown History Allergies Allergy/AdvReac Type Severity Reaction Status Date / Time No Known Allergies Allergy Verified 04/17/25 18:06 Review of Systems Review of Systems: CONSTITUTIONAL: Denies fever, chills, or sweats. Positive for fatigue. EYES: Denies visual changes, redness, or discharge. ENT: Denies rhinorrhea, congestion, sore throat, or otalgia. CARDIOVASCULAR: Denies chest pain, palpitations, lightheadedness, dizziness or edema. RESPIRATORY: Denies cough or dyspnea. GASTROINTESTINAL: Positive for abdominal pain, nausea, vomiting, or diarrhea. Negative for hematochezia or melena. GENITOURINARY: Denies dysuria or hematuria. SKIN: Denies rash or itching. MUSCULOSKELETAL: Denies back pain, joint pain, or myalgia. NEUROLOGIC: Denies headache, numbness, or weakness. PSYCHIATRIC: Denies anxiety or depression. All other systems reviewed are negative, except as documented in HPI. [facility] Past Medical History Medical History Dizziness Excessive somnolence disorder Sleep apnea Generalized anxiety disorder Asthma Seasonal allergies Sinus infection Diverticulitis C. difficile enteritis GERD (gastroesophageal reflux disease) Surgical History Surgical History Hx of hand surgery fracture and repair of right middle finger History of rectal surgery perirectal abscess surgical procedure Family History Family History Mother Cerebrovascular accident Breast cancer Grandparent Acute myocardial infarction Father Rheumatoid arthritis Lung cancer Social History Social History Social History: Caffeine-coffee Smoking packs per day: 1 Smoking cigarettes per day: 20.0 Years smoked: 20 Smoking pack-years: 20.00 Smoking status: Heavy tobacco smoker Tobacco type: cigarettes Alcohol intake: current Alcohol use details: rare Substance use: never Substance use type: does not use Do You Feel Safe in your Home?: Yes Lack of Transportation: No Lack of Food: Never True Current Housing: I Have Housing Concerned About Future Housing: No Difficulty Paying Gas/Electric Bills: No Difficulty Paying for Meds: No Currently Unemployed: No Education: High School Diploma/GED Difficulty w/ Childcare or Family Care: No Living arrangements: alone Gender identity (if verbalized by the patient): Male Spiritual care concerns: No Comments At the time of my signature, I reviewed and agree with the nursing past medical, surgical, social, and family history. There is no relevant family history pertinent to the patient complaint. Exam Narrative: GENERAL: This is a well-nourished, well-developed adult, in no apparent distress. They are non ill-appearing, nontoxic appearing. Patient is obese. HEAD: normocephalic, atraumatic. EYES: Sclera clear/white. Conjunctiva normal. Vision is grossly intact. Extraocular movements intact EARS: External ears normal. Hearing grossly intact. NOSE: External nose normal THROAT: Mucous membranes moist, NECK: Neck supple, non-tender without lymphadenopathy, masses or thyromegaly. CARDIOVASCULAR: Regular rate and rhythm without murmurs, gallops, or rubs. RESPIRATORY: Clear to auscultation. Breath sounds equal bilaterally. No wheezes, rales, or rhonchi. GASTROINTESTINAL: Abdomen soft, large, tenderness to palpation to the umbilical region, nondistended. Bowel sounds are active. No hepato-splenomegaly, or palpable masses. No guarding or rigidity. No rebound tenderness. SKIN: warm, Dry, intact with no suspicious lesions or rash, good texture and turgor. NEURO: awake, alert, and oriented to person, place and time. There were no obvious focal neurologic abnormalities. EXTREMITIES: No joint tenderness, effusion, or edema noted. Course Course Emergency Course: Portions of this record may have been created with voice recognition software Level of Care: Express Care Visit Vital Signs Vital signs: Vital Signs Temperature 98.9 F 04/17/25 16:48 Pulse Rate 87 04/17/25 16:48 Respiratory Rate 16 04/17/25 16:48 Blood Pressure 159/90 H 04/17/25 16:48 Pulse Oximetry 98 04/17/25 16:48 Oxygen Delivery Room Air 04/17/25 16:48 Temperature 98.9 F 04/17/25 16:48 Pulse Rate 87 04/17/25 16:48 Respiratory Rate 16 04/17/25 16:48 Blood Pressure 159/90 H 04/17/25 16:48 Pulse Oximetry 98 04/17/25 16:48 Oxygen Delivery Room Air 04/17/25 16:48 Reviewed MDM - Nausea/Vomiting/Diarrhea MDM Narrative Medical decision making narrative: Reviewed patient's lab work from [facility] showed an WBC count of 14,000 an elevated neutrophil count of 10. Elevated BUN on chemistry otherwise unremarkable. Patient's urinalysis did show leukocytes esterase but no white blood cells or bacteria in urine. No peritoneal findings on exam. Given patient's symptoms history of diverticulitis, it is recommend the patient seek a higher level care and proceed immediately to the emergency department for further evaluation management of his symptoms, and to rule out diverticulitis or any other intra-abdominal disorder or infection. Patient is agreeable to go to [facility] and spoke to Eliana TRAYLOR who is wear this pat ient accepted the patient for transfer. Patient advised to remain NPO and proceed immediately to the ER. Patient will go to ER via private vehicle. Patient is hemodynamically stable and in no apparent distress, nontoxic appearing. Differential Diagnosis Differential diagnosis: Likely gastroenteritis and other (Diverticulitis, colitis, small bowel obstruction, peritonitis) Critical Care Time Critical Care Time Critical Care Time: No Discharge Plan Discharge Clinical Impression: Abdominal pain Qualifiers: Abdominal location: periumbilical Qualified Code(s): R10.33 - Periumbilical pain Nausea and vomiting Qualifiers: Vomiting type: unspecified Qualified Code(s): R11.2 - Nausea with vomiting, unspecified Patient Disposition: Acute Care Hospital Condition: Stable Patient Language: Tamazight Prescriptions: No Action pantoprazole 40 mg tablet,delayed release (DR/EC) 40 mg PO DAILY albuterol sulfate 90 mcg/actuation HFA aerosol inhaler 2 puff inhalation TID PRN (Reason: shortness of breath or wheezing) Qty: 6.7 0RF testosterone cypionate 200 mg/mL oil 200 mg IM WEEKLY fexofenadine-pseudoephedrine [Dora-D 24 Hour] 180-240 mg tablet extended release 24 hr 1 tablet PO .every other day azelastine 137 mcg (0.1 %) aerosol,spray 1 spray intranasal BID tadalafil 5 mg Tablet 5 mg PO DAILY naproxen 500 mg tablet 500 mg PO BID PRN (Reason: pain) Qty: 180 1RF Follow-up/Referrals: Trudy Little NP [Primary Care Provider] - Time of Disposition: 17:51
== END 2025-04-17 17:50 | disposition short-term general hospital (02) ==
PROVIDERS: PCP Nurse Practitioner
DX: R10.33 Periumbilical pain (principal); R11.2 Nausea with vomiting, unspecified; F17.210 Nicotine dependence, cigarettes, uncomplicated; J45.909 Unspecified asthma, uncomplicated; K21.9 Gastro-esophageal reflux disease without esophagitis
CPT/HCPCS: 99212; G0463

== ENCOUNTER 2025-04-17 18:02 | Emergency (ER) | payer BC, SELFPAY ==
[2025-04-17] VITALS (33 sets, daily range): BP systolic 98–160; BP diastolic 58–90; PULSE 69–92; RESP 13–26; TEMP 37.3; O2SAT 95–99
--- NOTE | ~2025-04-17 | CT_ITS ---
CT abdomen pelvis w con Ordering provider: Harry Pagan MD History: 44 years Male with . lower abd pain, hx diverticulitis, wbc eleva . Comparison: None. Technique: CT abdomen and pelvis with IV and without oral contrast. Automated exposure control and it erative reconstruction technique were employed. The dose-length product was 874.89 mGy-cm. 100 mL Omn ipaque 350 was given IV. Findings: VISUALIZED LOWER CHEST: Normal. 3 mm nodule is seen in the right middle lobe. 12 months follow-up adv ised. UPPER ABDOMINAL ORGANS: Liver: Mild fat infiltration. Gallbladder: Contracted. Spleen: Normal. Stomach/duodenum: Normal. Pancreas: Normal. Adrenals: Normal. Kidneys: Normal. PELVIC ORGANS: The bladder is underfilled with thickened wall. Evaluation for cystitis advised. BOWEL AND MESENTERY: Colon: Diverticulitis is seen in the sigmoid colon with surrounding fat stranding and slightly thicke pablo wall. No definite abscess formation seen. The appendix is not demonstrated. Small Bowel: Normal. No obstruction. Peritoneum/mesentery: No free air or free fluid. No mesenteric lymphadenopathy. RETROPERITONEUM: Mild atheromatous disease of the abdominal aorta. No retroperitoneal lymphadenopat hy. MUSCULOSKELETAL: Superficial soft tissues: Enlarged left inguinal node is noted measuring 1.9 cm.. Other smaller nodes are seen bilaterally. The superficial soft tissues are normal. Bones: Age appropriate degenerative changes of the spine. Chronic loss of height is seen in T11. IMPRESSION: 1. Diverticulitis of the sigmoid colon with no evidence of abscess formation or free air. 2. Mild fat infiltration of the liver. Reviewed, dictated and finalized at location A. IMPRESSION: 1. Diverticulitis of the sigmoid colon with no evidence of abscess formation o r free air. 2. Mild fat infiltration of the liver.
--- OUTSIDE RECORDS SUMMARY | 2025-04-17 18:05 | XMS_ITS | Clinical Summary ---
Author Organization [facility] Address [facility] [place] [address] Care Team Providers Care Regional Ehs Manager Name Role Phone Alfredo Qiu NP Primary Care Provider [phone] Allergies No known active allergies Medications pantoprazole DR (PROTONIX) 40 mg EC tablet pantoprazole 40 mg tablet,delayed release TK 1 T PO BID Active naproxen (NAPROSYN) 500 mg tablet Take 500 mg by mouth 2 (two) times a day with meals Active fexofenadine-ps eudoephedrine (JASIEL-D) 60-120 mg per 12 hr tablet Take 1 tablet by mouth 2 (two) times a day Active predniSONE (DELTASONE) 10 mg tabletIndicatio ns:Seasonal allergic rhinitis due to pollen 2 tablets twice daily for 5 days, then 2 tablets daily for 3 days, then 1 tablet daily for 3 days. 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 Overview (01/22/2017): MIXED HYPERLIPIDEMIA Immunizations Immunization Administration Dates Next Due Tdap 05/31/2013 Surgical History Surgery Date Site/Laterality Comments WISDOM TOOTH EXTRACTION [place] teeth removed OTHER SURGICAL HISTORY 10/18/2012 - 10/17/2013 I & D perianal abscess Medical History Medical History Date Comments Adiposity Obesity Gastroesophageal reflux disease GERD Hx Other Medical c diff colitis; Comments: JDR 05/27/2015 - Hx Other Medical R 3rd finger am putation; Comments: Transfered to [facility] Diverticulitis of colon Gastric reflux Chronic kidney disease Allergic rhinitis Sinusitis Anxiety Tinnitus Dizziness Loss of smell Family History Medical History Relation Name Comments Arthritis Father Family history of arthritis - (Added by TW Conv) Diabetes Father Family history of diabetes mellitus - (Added by Conv) Gout Father Family history of gout - (Added by Conv) Rheum arthritis Father Rheumatoid a rthritis; Cancer Maternal Grandfather Cancer Mother Diabetes Mother Family history of diabetes mellitus - (Added by TW Conv) Gout Mother Family history of gout - (Added by Conv) Hypertension Mother Hypertension; Stroke Mother Stroke Paternal Grandfather Stroke Paternal Grandmother Diabetes Sister Diabetes mellit us; Relation Name Status Comments Father Maternal Grandfather Mother Paternal Grandfather Paternal Grandmother Sister Social History Tobacco Use Types Packs/Day Years Used Date Smoking Tobacco: Every Day Smokeless Tobacco: Never Tobacco Cessation:Counseling Given: Yes Comments:Smoking History Packs/day: 1 Packs Alcohol Use Standard Drinks/Week Comments Yes 0 (1 standard drink = 0.6 oz pur e alcohol) Personal Safety Answer Date Recorded Getting School Help Needed Not on file 12/08 Sex and Gender Information Value Date Recorded Sex Assigned at Not on file 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 Gender Identity Not on file Sexual Orientation Not on file Obstetrics History Last Filed Vital Signs Vital Sign Reading Time Taken Comments Blood Pressure 148/90 01/03/2021 9:16 AM CDT Pulse 68 01/03/2021 9:16 AM CDT Temperature - - Respiratory Rate 17 12/19/2021 3:21 PM SALARY AND WAGE ADMINISTRATOR Oxygen Saturation 96% 10/01/2013 7:45 AM SALARY AND WAGE ADMINISTRATOR Inhaled Oxygen Concentration - - Weight 99.8 kg (220 lb) 12/19/2021 3:21 PM SALARY AND WAGE ADMINISTRATOR Height 167.6 cm (5' 6) 12/19/2021 3:21 PM SALARY AND WAGE ADMINISTRATOR Body Mass Index 35.51 12/19/2021 3:21 PM SALARY AND WAGE ADMINISTRATOR Plan of Treatment Not on file [place] Care Teams Regional Ehs Manager Relationship Specialty Start Date End Date Alfredo Qiu NP PCP - General Internal Medicine 12/13/20
--- OUTSIDE RECORDS SUMMARY | 2025-04-17 18:05 | XMS_ITS | Referral Summary ---
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 Gender Identity Not on file Sexual Orientation Not on file Last Filed Vital Signs Vital Sign Reading Time Taken Comments Blood Pressure 148/90 01/03/2021 9:16 AM CDT Pulse 68 01/03/2021 9:16 AM CDT Temperature - - Respiratory Rate 17 12/19/2021 3:21 PM OUTBOUND SALES SPECIALIST Oxygen Saturation 96% 10/01/2013 7:45 AM OUTBOUND SALES SPECIALIST Inhaled Oxygen Concentration - - Weight 99.8 kg (220 lb) 12/19/2021 3:21 PM OUTBOUND SALES SPECIALIST Height 167.6 cm (5' 6) 12/19/2021 3:21 PM OUTBOUND SALES SPECIALIST Body Mass Index 35.51 12/19/2021 3:21 PM OUTBOUND SALES SPECIALIST Plan of Treatment Not on file Insurance 2014 [place] [id number] CHOICE [facility] PPO [place] Care Teams Family Assistant Relationship Specialty Start Date End Date Alfredo Qiu NP PCP - General Internal Medicine 12/13/20
--- OUTSIDE RECORDS SUMMARY | 2025-04-17 18:05 | XMS_ITS | Clinical Summary ---
Author Organization [facility] Address [id number] [place] [id number] Care Team Providers Care Claim Analyst Name Role Phone Unavailable Primary Care Provider Unavailabl e Social History Tobacco Use Types Packs/Day Years Used Date Smoking Tobacco: Never Assessed Sex and Gender Information Value Date Recorded Sex Assigned at Not on file Legal Sex Male 8:11 PM CDT Gender Identity Not on file Sexual Orientation Not on file Plan of Treatment Health Maintenance Due Date Last Done Comments HEPATITIS B VACCINES (1 of 3 - 19+ 3-dose series) 2001 INFLUENZA VACCINE (#1) 2024 DTAP/TDAP/TD VACCINES (3 - Td or Tdap) 05/27/2031 05/27/2021, 05/31/2013 HPV VACCINES Aged Out No longer eligi ble based on patient's age to complete this topic
--- OUTSIDE RECORDS SUMMARY | 2025-04-17 18:05 | XMS_ITS | Data Portability ---
Author Organization [place] [facility], Main Office Address [address] [place] [address] Assessment No assessment recorded. Plan of Treatment Reminders Order Date Submit Date Provider Last Modified By Organization Details Last Modified Time Details Appointments None record ed. Lab None record ed. Referral None record ed. Procedures None record ed. Surgeries None record ed. Imaging None record ed. Medication Orders None record ed. Patient TargetsNo targets recorded. Patient InstructionsNo instructions recorded. Reason for Referral None Reported. Results Created Date Observation Date Name Description Value Unit Range Abnormal Flag Note LastModifiedBy Organization Detail LastModifiedTime 05/28/20 21 06/04/2021 TESTO STERO NE, FREE+ TOTAL LC/MS testosterone , total, lc/MS 553.7 NG/dL 264.0- 916.0 This [facility] LC/MS -MS metho d is taye robertsi fied by the CDC Hormo ne Stand ardiz ation Progr am (HoSt ). Adult male refer ence inter dangelo is based on a popul ation of healt hy nonob shazia males (BMI <30) betwe en 19 and 39 years old. Suzanne obrien et.al . JCEM 2017, 102;1 161-1 173. PMID: 21370 103. Not Available [facility] (Lab) [address] [place], [address], 06/04/2021 13:10:26 05/28/20 21 06/04/2021 TESTO STERO NE, FREE+ TOTAL LC/MS testosterone , free 18.00 NG/dL 5.00-2 1.00 Not Available [facility] (Lab) [address] [place], [address], 06/04/2021 13:10:26 05/28/20 21 06/04/2021 TESTO STERO NE, FREE+ TOTAL LC/MS % free testosterone 3.25 % 1.50-4 .20 Perfo rmed at: - [facility] [place] [address] [facility] , [place] [address] Lab Direc tor: Liseth cabello MD, Phone : [phone] Not Available [facility] (Lab) [address] [place], [address], 06/04/2021 13:10:26 05/28/20 21 06/01/2021 ARNEL/A NTINU CLEAR ANTIB ODIES ,IFA antinuclear antibodies, ifa negati ve Negat marilyn <1:80 Borde rline 1:80 Posit marilyn >1:80 ICAP nomen morteza re: AC-0 For more infor pam n about Hep-2 cell patte rns use ANApa ttern s.org , the offic ial websi te for the Inter natio nal Conse nsus on Antin uclea r Antib abilio (ARNEL) Patte rns (ICAP ). Perfo rmed at: [facility] [address] [place] [address]17 Lab Direc tor: Vito muñoz PhD, Phone : [phone] Not Available [facility] On [facility] Orders [address] [place], [address], 06/01/2021 12:07:59 05/28/20 21 05/28/2021 FOLAT E, SERUM /PLAS MA folate 12.9 NG/mL 2.76- Not Available [facility] (Lab) [address] [place], [address], 05/28/2021 21:55:36 05/28/20 21 05/28/2021 VITAM IN B12 (ULICES DONAL ) vb12 374 pg/mL 239-93 1 Not Available [facility] Add On Lab Orders [address] [place], [address], 05/28/2021 21:55:34 05/28/20 21 05/28/2021 VITAM IN D 25-HY DROXY vd25oh 63.0 NG/mL 30-100 Vitam in D Statu s: Defic ient: <20 ng/mL Insuf ficie nt: 20-29 ng/mL Suffi cient : 30-10 0 ng/mL Not Available [facility] Add On Lab Orders [address] [place], [address], 05/28/2021 21:38:43 05/28/20 21 05/28/2021 RHEUM ATOID FACTO R rf <8.6 IU/mL 0.0-11 .9 Not Available [facility] (Lab) [address] [place], [address], 05/28/2021 21:38:28 05/28/20 21 05/28/2021 COMPR EHENS MARILYN METAB OLIC PANEL sodium 136 mmol/ L 137-14 5 low Not Available [facility] (Lab) [address] [place], [address], 05/28/2021 21:38:03 05/28/20 21 05/28/2021 COMPR EHENS MARILYN METAB OLIC PANEL potassium 4.4 mmol/ L 3.5-5. 1 Not Available [facility] (Lab) [address] [place], [address], 05/28/2021 21:38:03 05/28/20 21 05/28/2021 COMPR EHENS MARILYN METAB OLIC PANEL chloride 104 mmol/ L 98-107 Not Available [facility] (Lab) [address] [place], [address], 05/28/2021 21:38:03 05/28/20 21 05/28/2021 COMPR EHENS MARILYN METAB OLIC PANEL carbon dioxide 27 mmol/ L 22-30 Not Available [facility] (Lab) [address] [place], [address], 05/28/2021 21:38:03 05/28/20 21 05/28/2021 COMPR EHENS MARILYN METAB OLIC PANEL agap 9.4 mmol/ L 14-22 low Not Available [facility] (Lab) [address] [place], [address], 05/28/2021 21:38:03 05/28/20 21 05/28/2021 COMPR EHENS MARILYN METAB OLIC PANEL glucose 106 mg/dL 70-99 high Not Available [facility] (Lab) [address] [place], [address], 05/28/2021 21:38:03 05/28/20 21 05/28/2021 COMPR EHENS MARILYN METAB OLIC PANEL BUN 13 mg/dL 8-19 Not Available [facility] (Lab) [address] [place], [address], 05/28/2021 21:38:03 05/28/20 21 05/28/2021 COMPR EHENS MARILYN METAB OLIC PANEL creatinine 0.65 mg/dL 0.66-1 .25 low Not Available [facility] (Lab) [address] [place], [address], 05/28/2021 21:38:03 05/28/20 21 05/28/2021 COMPR EHENS MARILYN METAB OLIC PANEL GFR >60 Refer ence Range : [place] ge GFR Healt hy Adult : >60 mL/mi n/1.7 3 m2 Chron ic Kidne y Disea se: 15-60 mL/mi n/1.7 3 m2 Kidne y Failu re: <15/m L/min /1.73 m2 www.n iddk. nih.g ov MDRD study equat ion hasn' t been valid ated in child westley <18 yrs of age, pregn ant women , the elder ly >85 yrs of age, or in some racia l or ethni c subgr oups, suc as Hispa nics. Outsi de the valid ated radha eters , estim ated GFR is less accur ate requi ring clini jluis judgm ent on a case by case basis . Clini jluis inter preta tion for other races and ages must be made by the clini carlene . Futhe rmore , any of th e limit ation s with the use of serum creat inine relat ed to nutri ju l statu s o r medic ation usage hasn' t accou nted for the MDRD Study equat ion. For perso ns < 18 yrs of age, a pedia tric GFR calcu lator can be locat ed on the [facility] websi te: https ://rufino w.kid lalita.o rg/pr ofess ional s/kdo qi/gf r_cal culat or Not Available [facility] (Lab) [address] [place], [address], 05/28/2021 21:38:03 05/28/20 21 05/28/2021 COMPR EHENS MARILYN METAB OLIC PANEL alkaline phosphatase 50 U/L 38-126 Not Available [facility] (Lab) [address] [place], [address], 05/28/2021 21:38:03 05/28/20 21 05/28/2021 COMPR EHENS MARILYN METAB OLIC PANEL alanine aminotransfe rase 22 U/L 0-50 Not Available [facility] (Lab) [address] [place], [address], 05/28/2021 21:38:03 05/28/20 21 05/28/2021 COMPR EHENS MARILYN METAB OLIC PANEL aspartate aminotransfe rase 24 U/L 15-46 Not Available [facility] (Lab) [address] [place], [address], 05/28/2021 21:38:03 05/28/20 21 05/28/2021 COMPR EHENS MARILYN METAB OLIC PANEL bilirubin, total 0.50 mg/dL 0.20-1 .30 Not Available [facility] (Lab) [address] [place], [address], 05/28/2021 21:38:03 05/28/20 21 05/28/2021 COMPR EHENS MARILYN METAB OLIC PANEL calcium 9.2 mg/dL 8.4-10 .2 Not Available [facility] (Lab) [address] [place], [address], 05/28/2021 21:38:03 05/28/20 21 05/28/2021 COMPR EHENS MARILYN METAB OLIC PANEL total protein 6.5 g/dL 6.3-8. 2 Not Available [facility] (Lab) [address] [place], [address], 05/28/2021 21:38:03 05/28/20 21 05/28/2021 COMPR EHENS MARILYN METAB OLIC PANEL albumin 4.2 g/dL 3.4-5. 0 Not Available [facility] (Lab) [address] [place], [address], 05/28/2021 21:38:03 05/28/20 21 05/28/2021 COMPR EHENS MARILYN METAB OLIC PANEL globulin 2.3 g/dL 2.6-4. 2 low Not Available [facility] (Lab) [address] [place], [address], 05/28/2021 21:38:03 05/28/20 21 05/28/2021 COMPR EHENS MARILYN METAB OLIC PANEL A/G ratio 1.8 ratio 1.0-2. 0 Not Available [facility] (Lab) [address] [place], [address], 05/28/2021 21:38:03 05/28/20 21 05/28/2021 LIPID PANEL cholesterol 204 mg/dL 140-19 9 high NIH CATHERINE NSUS RECOM MENDA TION FOR JAMARI STERO L: ADULT CHILD LOW RISK: <200 <170 BORDE RLINE : <200- 239 ----- HIGH RISK: >240 >200 Not Available [facility] (Lab) [address] [place], [address], 05/28/2021 21:37:52 05/28/20 21 05/28/2021 LIPID PANEL triglyceride s 157 mg/dL 0-150 high NIH CATHERINE NSUS REPOR T RECOM MENDA TION FOR TRIGL YCERI RAYMOND: ADULT CHILD LOW RISK: <150 ----- BODER LINE: 150-1 99 ----- HIGH RISK: >200 ----- Not Available [facility] (Lab) [address] [place], [address], 05/28/2021 21:37:52 05/28/20 21 05/28/2021 LIPID PANEL HDL cholesterol 45 mg/dL 40- Not Available [facility] (Lab) [address] [place], [address], 05/28/2021 21:37:52 05/28/20 21 05/28/2021 LIPID PANEL LDL cholesterol, calculated 128 mg/dL 0-130 NIH CATHERINE NSUS REPOR T RECOM MENDA TIONS FOR LDL: ADULT CHILD LOW RISK <130 <110 (OPTI MAL LDL) <100 ----- BORDE RLINE : 130-1 59 ----- HIGH RISK: >160 >130 A TRIGL YCERI DE RESUL T >400 INVAL IDATE S THE CALCU LATIO N FOR LDL FRACT IONAT ION - THE LDL RESUL T WILL NOT BE REPOR SIRI. Not Available [facility] (Lab) [address] [place], [address], 05/28/2021 21:37:52 05/28/20 21 05/28/2021 SEDIM ENTAT ION RATE erythrocyte sedimentatio n rate 9 mm/HR 0-20 Not Available [facility] (Lab) [address] [place], [address], 05/28/2021 20:07:59 05/28/20 21 05/28/2021 CBC W/O DIFFE RENTI AL white blood cells 10.3 x10'3 /uL 4.2-10 .8 Not Available [facility] (Lab) [address] [place], [address], 05/28/2021 19:46:12 05/28/20 21 05/28/2021 CBC W/O DIFFE RENTI AL red blood cells 4.95 x10'6 /uL 4.10-5 .80 Not Available [facility] (Lab) [address] [place], [address], 05/28/2021 19:46:12 05/28/20 21 05/28/2021 CBC W/O DIFFE RENTI AL hemoglobin 15.7 g/dL 13.2-1 7.0 Not Available [facility] (Lab) [address] [place], [address], 05/28/2021 19:46:12 05/28/20 21 05/28/2021 CBC W/O DIFFE RENTI AL hematocrit 45.5 % 39.3-5 0.0 Not Available [facility] (Lab) [address] [place], [address], 05/28/2021 19:46:12 05/28/20 21 05/28/2021 CBC W/O DIFFE RENTI AL mean red cell volume 91.9 fL 80.0-9 7.0 Not Available [facility] (Lab) [address] [place], [address], 05/28/2021 19:46:12 05/28/20 21 05/28/2021 CBC W/O DIFFE RENTI AL mean red cell hemoglobin 31.7 pg 27.0-3 3.0 Not Available [facility] (Lab) [address] [place], [address], 05/28/2021 19:46:12 05/28/20 21 05/28/2021 CBC W/O DIFFE RENTI AL mean RBC HGB concentratio n 34.5 g/dL 31.0-3 6.0 Not Available [facility] (Lab) [address] [place], [address], 05/28/2021 19:46:12 05/28/20 21 05/28/2021 CBC W/O DIFFE RENTI AL red cell distribution width 12.8 % 11.8-1 5.5 Not Available [facility] (Lab) [address] [place], [address], 05/28/2021 19:46:12 05/28/20 21 05/28/2021 CBC W/O DIFFE RENTI AL platelets 285 x10'3 /uL 150-40 0 Not Available [facility] (Lab) [address] [place], [address], 05/28/2021 19:46:12 05/28/20 21 05/28/2021 CBC W/O DIFFE RENTI AL mean platelet volume 10.9 fL 9.0-12 .4 Not Available [facility] (Lab) [address] [place], [address], 05/28/2021 19:46:12 05/30/20 21 03/26/2021 MRI, cervi jluis spine , w/o contr ast No observ ation record ed. [id number] Not Available 12/16/2022 15:42:04 10/24/19 22 10/24/2021 XR, hand No observ ation record ed. [id number], [place], [address], 12/16/2022 15:42:04 Result Notes None recorded. Problems Name Problem SNOMED Code Status Onset Date Resolution Date Notes Provider Name and Address Organization Details Recorded Time Taste sense altered 846892319 Active 2020 Not Available [facility] 3 15:41:05 Eruption 306648510 Active 2021 Not Available [facility] 3 15:41:05 Low back pain 899308707 Active 2021 Not Available [facility] 3 15:41:05 Obesity 161398897 Active 2021 Not Available [facility] 3 15:41:05 Sprain of ankle 67228538 Active Not Available [facility] 3 15:41:05 Anxiety 54944898 Active 2020 Not Available [facility] 3 15:41:05 Hyperlipidemi a 70784723 Active 2018 Not Available [facility] 3 15:41:06 Essential hypertension 91299915 Active 2021 Not Available [facility] 3 15:41:06 Hemorrhoids 20279622 Active 2018 Not Available [facility] 3 15:41:06 Perianal abscess 64748933 Active 2018 Not Available [facility] 3 15:41:06 Hiatal hernia 31090891 Active 2021 Not Available [facility] 3 15:41:06 Fatigue 35320183 Active 2021 Not Available [facility] 3 15:41:06 Chronic rhinitis 41897698 Active 2021 Not Available [facility] 3 15:41:06 Problem Notes None recorded. Medical Equipment None Reported. Allergies Allergen ID Allergen Name Allergen Category Reaction Reaction Severity Criticality Documentation Date Start Date Code Code System Note Provider Name and Address Organization Details Recorded Time 33743 Dora-D medicatio n Not available Not available Not available 12/16/2022 18145 UNK Not Available [facility] 3 15:42:01 Medications Name Sig Start Date Stop Date Status Note LastModified by Organization Details LastModified Time cyclobenzap rine 10 mg tablet Take 1 tablet 3 times a day by oral route as needed for 30 days. active Not Available Not Available No t Available bupropion HCl SR 150 mg tablet,12 hr sustained-r elease TAKE 1 TABLET BY MOUTH TWICE DAILY 06/06 completed Not Available Not Available Not Available prednisone 10 mg tablet 02/25 completed Not Available Not Available Not Available cetirizine 10 mg tablet TK 1 T PO QHS 02/18 completed Not Available Not Available Not Available azithromyci n 250 mg tablet TAKE 2 TABLETS (500 MG) BY ORAL ROUTE ONCE DAILY FOR 1 DAY THEN 1 TABLET (250 MG) BY ORAL ROUTE ONCE DAILY FOR 4 DAYS active Not Available Not Available No t Available prednisone 20 mg tablet TAKE 2 TABLETS BY MOUTH DAILY active Not Available Not Available No t Available clonazepam 0.5 mg tablet TAKE 1/2 TO 1 TABLET BY MOUTH TWICE DAILY NEEDED FOR ANXIETY active Not Available Not Available No t Available sulfamethox azole 800 mg-trimetho prim 160 mg tablet TAKE 1 TABLET BY MOUTH TWICE DAILY 02/25 completed Not Available Not Available Not Available triamcinolo ne acetonide 0.1 % topical cream TRINI EXT AA TID 02/18 completed Not Available Not Available Not Available ketorolac 30 mg/mL (1 mL) injection solution Inject 1 mL every 6 hours by intramusc ular route. 02/25 completed Not Available Not Available Not Available amoxicillin 875 mg tablet TK 1 T PO BID active Not Available Not Available No t Available clindamycin 1 % topical gel APPLY TOPICALLY TO THE AFFECTED AREA OF THE LEG TWICE DAILY NEEDED active Not Available Not Available No t Available Proctozone- HC 2.5 % topical cream perineal applicator 06/06 completed Not Available Not Available Not Available pantoprazol e 40 mg tablet,valeria yed release TAKE 1 TABLET BY MOUTH TWICE DAILY active Not Available Not Available No t Available triamcinolo ne acetonide 0.1 % topical ointment APPLY THIN LAYER TOPICALLY TO THE AFFECTED AREA TWICE DAILY NEEDED FOR RASH active Not Available Not Available No t Available lisinopril 10 mg tablet TAKE 1 TABLET BY MOUTH DAILY active Not Available Not Available No t Available mupirocin calcium 2 % topical cream APPLY SMALL AMOUNT EXTERNALL Y TO THE AFFECTED AREA THREE TIMES DAILY FOR 10 DAYS 03/27 completed Not Available Not Available Not Available sertraline 25 mg tablet TAKE 1 TABLET BY MOUTH EVERY DAY active Not Available Not Available No t Available montelukast 10 mg tablet TK 1 T PO QD active Not Available Not Available No t Available hydroxyzine HCl 25 mg tablet Take 1 tablet 3 times a day by oral route as needed. active Not Available Not Available No t Available azelastine 137 mcg (0.1 %) nasal spray USE 2 SPRAYS IN EACH NOSTRIL DAILY active Not Available Not Available No t Available albuterol sulfate HFA 90 mcg/actuati on aerosol inhaler INHALE 2 PUFFS BY MOUTH FOUR TIMES DAILY active Not Available Not Available No t Available fluticasone propionate 50 mcg/actuati on nasal spray,suspe nsion SHAKE LIQUID AND USE 1 SPRAY IN EACH NOSTRIL EVERY DAY 06/06 completed Not Available Not Available Not Available sertraline 50 mg tablet TAKE 1 TABLET BY MOUTH DAILY active Not Available Not Available No t Available amoxicillin 875 mg-potassiu m clavulanate 125 mg tablet TAKE 1 TABLET BY MOUTH EVERY 12 HOURS FOR 10 DAYS active Not Available Not Available No t Available Virtussin AC 10 mg-100 mg/5 mL oral liquid TK 5 ML PO Q 6 H COU 01/25 completed Not Available Not Available Not Available Vitals Date Recorded Body height Oxygen saturation Oxygen saturation in Arterial blood by Pulse oximetry Heart rate Body temperature Systolic blood pressure Diastolic blood pressure Provider Name and Address Organization Details Last Updated DateTime 2 167.64 cm 97 % 97 % 83 /min 98.3 [degF] 144 mm[Hg] 84 mm[Hg] Not Available [facility] 3 15:40:51 Date Recorded Body mass index (BMI) Body height Oxygen saturation Oxygen saturation in Arterial blood by Pulse oximetry Heart rate Body temperature Body weight Systolic blood pressure Diastolic blood pressure Provider Name and Address Organization Details Last Updated DateTime 2 36 kg/m2 167.64 cm 98 % 98 % 96 /min 98.8 [degF] 490173. 1 g 140 mm[Hg] 90 mm[Hg] Not Available [facility] 3 15:40:51 Date Recorded Body mass index (BMI) Body height Heart rate Body temperature Body weight Systolic blood pressure Diastolic blood pressure Provider Name and Address Organization Details Last Updated DateTime 2 35.5 kg/m2 167.64 cm 78 /min 98 [degF] 65040.3 2 g 140 mm[Hg] 80 mm[Hg] Not Available [facility] 3 15:40:51 Date Recorded Body mass index (BMI) Body height Heart rate Body temperature Body weight Systolic blood pressure Diastolic blood pressure Provider Name and Address Organization Details Last Updated DateTime 2 36.2 kg/m2 167.64 cm 86 /min 97.5 [degF] 490098. 69 g 132 mm[Hg] 70 mm[Hg] Not Available [facility] 3 15:40:51 Date Recorded Body mass index (BMI) Body height Oxygen saturation Oxygen saturation in Arterial blood by Pulse oximetry Heart rate Body temperature Body weight Systolic blood pressure Diastolic blood pressure Provider Name and Address Organization Details Last Updated DateTime 1 36 kg/m2 167.64 cm 98 % 98 % 78 /min 98.1 [degF] 870515. 1 g 150 mm[Hg] 54 mm[Hg] Not Available [facility] 3 15:40:51 Social History Question Answer Notes LastModified by Organizat ion Details LastModified Time Tobacco Smoking Status Current Every Day Smoker Not Available [facility] 12/16/2022 15:40:16 Do You Have An Advance Directive? No [id number] Information not available 12/16/2022 What Is Your Level Of Caffeine Consumption? Moderate [id number] Information not available 12/16/2022 In The 14 Days Before Symptom Onset, Have You Had Close Contact With A Laboratory-confirm ed COVID-19 While That Case Was Ill? No [id number] Information not available 12/16/2022 In The 14 Days Before Symptom Onset, Have You Had Close Contact With A Person Who Is Under Investigation For COVID-19 While That Person Was Ill? No [id number] Information not available 12/16/2022 What Type Of Diet Are You Following? REGULAR [id number] Information not available 12/16/2022 Which Illicit Or Recreational Drugs Have You Used? None [id number] Information not available 12/16/2022 What Is The Fluoride Status Of Your Home? Unknown [id number] Information not available 12/16/2022 Do You Have A Medical Power Of Mold Laminator? No [id number] Information not available 12/16/2022 What Was The Date Of Your Most Recent Tobacco Screening? 02/25/2022 [id number] Information not available 12/16/2022 Do You Have Any Pets? No [id number] Information not available 12/16/2022 What Is Your Relationship Status? Single [id number].[id number] Information not available 12/16/2022 Do You Use Your Seat Belt Or Car Seat Routinely? Yes [id number] Information not available 12/16/2022 Do You Have Smoke And Carbon Monoxide Detectors In Your Home? Yes [id number].[id number] Information not available 12/16/2022 How Much Tobacco Do You Smoke? 1 PPD [id number].[id number] [id number] Information not available 12/16/2022 Have You Recently Traveled Abroad? No [id number] 8401 Information not available 12/16/2022 Sex: Unknown Functional Status Question Answer Note LastModified by Organizat ion Details LastModified Time Do you use any illicit or recreational drugs? No [id number] Information not available 12/16/2022 What is your level of alcohol consumption? Occasional [id number] Information not available 12/16/2022 Do you or have you ever used smokeless tobacco? Never used smokeless tobacco MIGRATION.[id number] Information not available 12/16/2022 What is your occupation? Construction MIGRATION.[id number] 9543 Information not available 12/16/2022 Do you or have you ever used e-cigarettes or vape? Never used electronic cigarettes [id number].[id number] Information not available 12/16/2022 What is your exercise level? Occasional [id number] Information not available 12/16/2022 Mental Status None recorded. Family History Relationship Description Onset Age of this Age Resolved Age Notes LastModified by Organization Details LastModified Time Mother Malignant tumor of breast [id number] Not available 12/16/2022 15:40:18 Mother Family history of stroke [id number] Not available 12/16/2022 15:40:18 Father Rheumatoid arthritis [id number] Not available 12/16/2022 15:40:18 Medical History Condition Response ARTHRITIS Y HEADACHES/MIGRAINES Y GI PROBLEMS Y GERD/NAUSEA Y CHRONIC PAIN SYNDROME Y ASTHMA Y HAVE YOU BEEN HOSPITALIZED OR SEEN IN [facility] IN THE PAST YEAR ? N MUSCLE,JOINT OR BONE PROBLEMS Y Past Encounters Encounter ID Performer Location Encounter Start Date Encounter Closed Date Diagnosis/Indication Diagnosis SNOMED-CT Code Diagnosis ICD10 Code Diagnosis Note [id number] INEZ Fernandez [facility] [address] [place] [address] 12/18/2020 00:00:00 12/18/2020 20:22:18 [id number] INEZ Fernandez [facility] [place] [address] [place] [address] 01/02/2021 00:00:00 01/02/2021 18:28:53 [id number] Carlene Pro MD [facility] [place] [address] [place] [address] 05/28/2021 00:00:00 05/28/2021 20:40:47 [id number] Carlene Pro MD [facility] [place] [address] [place] [address] 10/31/2021 00:00:00 10/31/2021 17:28:41 [id number] OSKAR Friedman [facility] [place] [address] [place] [address] 11/11/2021 00:00:00 11/11/2021 15:30:31 [id number] Elizaar German MD [facility] [address] [facility], [facility] [address] [place] [address] 02/25/2022 00:00:00 02/25/2022 22:03:30 [id number] Eliazar German MD [facility] [address] [place] [address] [facility] [address] [place] [address] 03/27/2022 00:00:00 04/05/2022 16:05:16 Health Concerns Section Related Observation LastModified by Organization Detai ls LastModified Time None Recorded Concern Status LastModified by Organization Details LastModified Time None Recorded Advance Directives Directive N: Payers Insurance Date Sequence Insurance Name Policy Number Policy Kovacs Covered Member ID Kovacs Member ID Guarantor Name 04/17/2023 1 [place] [id number] Deni Campos [id number] Deni Campos
[2025-04-17 18:42] LABS: Hematocrit 48.6 % (42.0-52.0); Hemoglobin 16.5 g/dL (14.0-18.0); Immature Granulocyte Percent A 0.2 % (0-0.5); Lymphocytes Absolute Auto 2.55 K/mm3 (0.9-3.2); Mean Corpuscular HGB Conc 34.0 g/dl (32-36); Mean Corpuscular Hemoglobin 30.8 pg (26-34); Mean Corpuscular Volume 90.8 fl (80-100); Nucleated Red Blood Cells Absolute Auto 0.000 K/mm3 (0.0-0.012); Nucleated Red Blood Cells Perc 0.0 % (0.0-0.2); Platelet Count Result 264 k/mm3 (150-375); Red Blood Count 5.35 M/mm3 (4.6-6.20); White Blood Count 12.9 K/mm3 (4.5-10.0)
[2025-04-17 19:00] LABS: Add Urine Microscopic? YES; Appearance Urine Clear (Clear); Glucose Urine UA Negative (Negative); Leukocyte Esterase Ur Negative LEU/UL (Negative); Nitrate Urine Negative (Negative); Non Pathogenic Casts 0-2; Specific Grav Ur 1.027 (1.001-1.035)
--- OUTSIDE RECORDS SUMMARY | 2025-04-17 19:10 | XMS_ITS | Clinical Summary ---
Author Organization [facility] Address [address] [place] [address] Care Team Providers Care Life Cycle Assessment Analyst Name Role Phone Unavailable Primary Care [...]
--- OUTSIDE RECORDS SUMMARY | 2025-04-17 19:10 | XMS_ITS | Clinical Summary ---
Author Organization [facility] Address [facility] [place] [address] Care Team Providers Care Crts Name Role Phone Alfredo Qiu DUST SAMPLER Primary Care Provider Allergies No known active allergies Immunizations Immunization Administration Dates Next Due Tdap (Adacel) 05/27/2021 Social History Tobacco Use Types Packs/Day Years Used Date Smoking Tobacco: Never Assessed Sex and Gender Information Value Date Recorded Sex Assigned at Not on file Legal Sex Male 8:28 PM CDT Gender Identity Not on file Sexual Orientation Not on file Last Filed Vital Signs Vital Sign Reading Time Taken Comments Blood Pressure 151/80 05/27/2021 8:03 AM CDT Pulse 94 05/27/2021 8:03 AM CDT Temperature 36.3 C (97.3 F) 05/27/2021 8:03 AM CDT Respiratory Rate 16 05/27/2021 8:03 AM CDT Oxygen Saturation 95% 05/27/2021 8:03 AM CDT Inhaled Oxygen Concentration - - Weight 102.5 kg (226 lb) 05/27/2021 8:03 AM CDT Height 167.6 cm (5' 6) 05/27/2021 8:03 AM CDT Body Mass Index 36.48 05/27/2021 8:03 AM CDT Plan of Treatment Health Maintenance Due Date Last Done Comments Annual Physical 1985 Hepatitis C 2000 Hepatitis B Vaccines (1 of 3 - 19+ 3-dose series) 2001 COVID-19 Vaccine (2023-2 5 season) 2024 DTaP, Tdap and Td Vaccines ( 3 - Td or Tdap) 05/27/2031 05/27/2021, 05/31/2013 HPV Vaccines Aged Out No longer eligi ble based on patient's age to complete this topic Meningococcal B Vaccine Aged Out No l onger eligible based on patient's age to complete this topic Meningococcal Vaccine Aged Out No teodora isamar eligible based on patient's age to complete this topic Pneumococcal Vaccine: Pediatrics (0 to 5 Years) and At-Risk Patients (6 to 49 Years) Aged Out No longer eligible b ased on patient's age to complete this topic RSV Immunizations Under 20 Months Aged Out No longer eligible b ased on patient's age to complete this topic Insurance [facility] Care Teams Crts Relationship Specialty Start Date End Date Alfredo Qiu, INEZ [address] [place] [id number] PCP - General NURSE PRACTITIONER 05/27/21
[2025-04-17 19:34] LABS: Alanine Aminotransferase 19 U/L (6-50); Albumin Level 4.1 g/dL (3.5-5.1); Alkaline Phosphatase 49 U/L (38-126); Anion Gap 9 mmol/L (4-12); Aspartate Amino Transferase 25 U/L (17-59); Bilirubin,Total 0.5 mg/dL (0.2-1.3); Blood Urea Nitrogen 20 mg/dL (9-20); Calcium 9.2 mg/dL (8.4-10.2); Carbon Dioxide 25 mmol/L (22-30); Chloride 104 mmol/L (98-107); Estimated CRCL calculation 110 ml/min; Estimated Glomerular Filt Rate > 60; Glucose 102 mg/dL (65-110); Lipase 44 U/L (23-300); Potassium 3.7 mmol/L (3.4-5.0); Sodium 138 mmol/L (137-145); Total Protein 7.2 g/dL (6.3-8.2)
--- NOTE | 2025-04-17 19:41 | ED_ITS ---
HPI - Abdominal Pain General Chief Complaint: Abdominal Pain Stated Complaint: abd pain Time Seen by Provider: 04/17/25 18:16 History of Present Illness HPI narrative: 44-year-old male with no significant past medical history aside from diverticulosis with previous diverticulitis. Patient presents the emergency room with lower abdominal pain and outside laboratory studies that showed leukocytosis. He states he felt nauseated and vomited 1 time about 10 days ago and it has been having some cramping intermittent abdominal pain. No diarrhea, constipation, bloody diarrhea or emesis. No fever chills. No trauma or injury. States that his pain is coming and going with no real provoking factors and or mild in nature. Called his doctor and was told to go to urgent care who referred him to the emergency department. Related Data Home Medications ?Medication ?Instructions ?Recorded ?Confirmed ?Last Taken ?Type fexofenadine-pseudoephedrine ER 1 tablet PO .every other day 10/07/23 05/18/24 Unknown History 180 mg-240 mg tablet,ext.release 24 hr (Dora-D 24 Hour) testosterone cypionate 200 mg/mL 200 mg IM WEEKLY 10/07/23 05/18/24 Unknown History intramuscular oil azelastine 137 mcg (0.1 %) nasal 1 spray intranasal BID 10/26/23 05/18/24 Unknown History spray pantoprazole 40 mg tablet,delayed 40 mg PO DAILY 01/10/24 05/18/24 Unknown History release tadalafil 5 mg tablet 5 mg PO DAILY 01/12/24 05/18/24 Unknown History Allergies Allergy/AdvReac Type Severity Reaction Status Date / Time No Known Allergies Allergy Verified 04/17/25 18:06 Review of Systems 2 Review of Systems: As reviewed above in HPI [facility] Past Medical History Medical History Dizziness Excessive somnolence disorder Sleep apnea Generalized anxiety disorder Asthma Seasonal allergies Sinus infection Diverticulitis C. difficile enteritis GERD (gastroesophageal reflux disease) Surgical History Surgical History Hx of hand surgery fracture and repair of right middle finger History of rectal surgery perirectal abscess surgical procedure Family History Family History Mother Cerebrovascular accident Breast cancer Grandparent Acute myocardial infarction Father Rheumatoid arthritis Lung cancer Social History Social History Social History: Caffeine-coffee Smoking packs per day: 1 Smoking cigarettes per day: 20.0 Years smoked: 20 Smoking pack-years: 20.00 Smoking status: Heavy tobacco smoker Tobacco type: cigarettes Alcohol intake: current Alcohol use details: rare Substance use: never Substance use type: does not use Do You Feel Safe in your Home?: Yes Lack of Transportation: No Lack of Food: Never True Current Housing: I Have Housing Concerned About Future Housing: No Difficulty Paying Gas/Electric Bills: No Difficulty Paying for Meds: No Currently Unemployed: No Education: High School Diploma/GED Difficulty w/ Childcare or Family Care: No Living arrangements: alone Gender identity (if verbalized by the patient): Male Spiritual care concerns: No Exam 2 Narrative: GENERAL: [Well-appearing, well-nourished, and in no acute distress.] HEAD: [Normocephalic, atraumatic.] EYES: [PERRLA and EOMI.] ENT: Nares clear, no rhinorrhea or epistaxis. Mucous membranes moist. NECK: Supple. CHEST: [Clear to auscultation. No respiratory distress.] HEART: [Regular rate and rhythm]. No murmur heard. [Normal peripheral pulses.] ABDOMEN: [Soft, nondistended], [nontender], [No rigidity or guarding] EXTREMITIES: Normal range of motion. [No edema.] SKIN: Warm, dry, no rash. NEURO: [No focal deficits]. Alert and oriented [x3.] PSYCH: [Normal mood and affect.] Course Vital Signs Vital signs: Vital Signs Temperature 37.3 C 04/17/25 18:04 Pulse Rate 87 04/17/25 18:04 Respiratory Rate 16 04/17/25 18:04 Blood Pressure 160/90 H 04/17/25 18:04 Pulse Oximetry 99 04/17/25 18:04 Temperature 37.3 C 04/17/25 18:04 Pulse Rate 87 04/17/25 18:04 Respiratory Rate 16 04/17/25 18:04 Blood Pressure 160/90 H 04/17/25 18:04 Pulse Oximetry 99 07/01/25 18:04 MDM - Abdominal Pain MDM Narrative Medical decision making narrative: 44-year-old male with no significant past medical history aside from diverticulosis with previous diverticulitis. Patient presents the emergency room with lower abdominal pain and outside laboratory studies that showed leukocytosis. He states he felt nauseated and vomited 1 time about 10 days ago and it has been having some cramping intermittent abdominal pain. No diarrhea, constipation, bloody diarrhea or emesis. No fever chills. No trauma or injury. States that his pain is coming and going with no real provoking factors and or mild in nature. Called his doctor and was told to go to urgent care who referred him to the emergency department. Patient has a soft nontender nondistended abdomen with vital signs are unremarkable without any tachycardia, fever, hypoxia significant blood pressure elevations. Given his history of diverticulitis and lower abdominal symptoms at this time could be a recurrence of this or other intra-abdominal process such as an abscess, appendicitis, low suspicion colitis. He is afebrile which is reassuring. Laboratory studies were drawn a CT scan with contrast was ordered. No significant pain on reassessments. Laboratory studies showed leukocytosis of 12.9, normal hemoglobin and platelets. Electrolytes are normal, normal renal and hepatic function panel. Normal glucose. Urinalysis with no signs of infection. CT scan shows acute diverticulitis of the sigmoid colon with no evidence of abscess formation or free air. Mild fatty liver infiltration. Patient is started on ciprofloxacin Flagyl and is stable with uncomplicated diverticulitis and is a good can defer outpatient basis treatment and evaluation with his PCP. He will be sent home with prescription for 2 antibiotics and encouraged to keep a liquid diet with low fiber diet until symptoms improved. Given return precautions and discharge instructions. Medical Records Attestation: I reviewed the patient's medical records. Lab Data Attestation: I reviewed the patient's lab results. 04/17/25 18:29 04/17/25 19:18 Labs: Lab Results 04/17/25 04/17/25 04/17/25 Range/Units 18:29 18:39 19:18 WBC 12.9 H (4.5-10.0) K/mm3 RBC 5.35 (4.6-6.20) M/mm3 Hgb 16.5 (14.0-18.0) g/dL Hct 48.6 (42.0-52.0) % MCV 90.8 (80-100) fl MCH 30.8 (26-34) pg MCHC 34.0 (32-36) g/dl RDW 13.2 (11.5-14.5) % Plt Count 264 (150-375) k/mm3 MPV 10.2 (7.4-10.4) fl Immature Gran % (Auto) 0.2 (0-0.5) % Neut % (Auto) 70.6 (45.5-73.1) % Lymph % (Auto) 19.8 (18.3-44.2) % [place] % (Auto) 8.3 (2.6-8.5) % Eos % (Auto) 0.6 (0-4.4) % Baso % (Auto) 0.5 (0.2-1.2) % Lymph # (Auto) 2.55 (0.9-3.2) K/mm3 [place] # (Auto) 1.1 H (0.1-0.6) K/mm3 Eos # (Auto) 0.1 (0-0.3) K/mm3 Baso # (Auto) 0.1 (0.0-0.1) K/mm3 Abs Immat Gran (auto) 0.03 (0.00-0.031) K/mm3 Absolute Neuts (auto) 9.1 H (1.3-6.7) K/mm3 Absolute Nucleated RBC 0.000 (0.0-0.012) K/mm3 Nucleated RBC % 0.0 (0.0-0.2) % Sodium 138 (137-145) mmol/L Potassium 3.7 (3.4-5.0) mmol/L Chloride 104 (98-107) mmol/L Carbon Dioxide 25 (22-30) mmol/L Anion Gap 9 (4-12) mmol/L BUN 20 (9-20) mg/dL Creatinine 0.87 (0.7-1.3) mg/dL Estim Creat Clear Calc 110 ml/min Estimated GFR > 60 (59 - ) Glucose 102 (65-110) mg/dL Calcium 9.2 (8.4-10.2) mg/dL Total Bilirubin 0.5 (0.2-1.3) mg/dL AST 25 (17-59) U/L ALT 19 (6-50) U/L Alkaline Phosphatase 49 (38-126) U/L Total Protein 7.2 (6.3-8.2) g/dL Albumin 4.1 (3.5-5.1) g/dL Lipase 44 (23-300) U/L Urine Color Yellow (Yellow) Urine Appearance Clear (Clear) Urine pH 7.0 (5.0-9.0) Ur Specific [place] 1.027 (1.001-1.035) Urine Protein Trace (Negative) mg/dL Urine Glucose (UA) Negative (Negative) mg/dL Urine Ketones Trace H (Negative) mg/dL Ur Blood (Man) Negative (Negative) Urine Nitrate Negative (Negative) Urine Bilirubin Negative (Negative) Urine Urobilinogen 1.0 (<2.0) mg/dL Leukocyte Esterase Rfl Negative (Negative) HEENA/UL Urine RBC 0-2 (0-2) /hpf Urine WBC 0-5 (0-3) /hpf Ur Squamous Epith Cells None seen (Few) /hpf Urine Bacteria None seen /hpf Urine Casts 0-2 Imaging Data Attestation: I personally reviewed and interpreted this imaging study as follows: My impression: Impressions Abdomen/Pelvis CT 04/17/25 20:54 IMPRESSION: 1. Diverticulitis of the sigmoid colon with no evidence of abscess formation or free air. 2. Mild fat infiltration of the liver. Radiologist's impression: ITS Impressions Abdomen/Pelvis CT 04/17/25 20:54 IMPRESSION: 1. Diverticulitis of the sigmoid colon with no evidence of abscess formation or free air. 2. Mild fat infiltration of the liver. Discharge Plan Discharge Clinical Impression: Acute diverticulitis Patient Disposition: Home Condition: Stable Instructions: Antibiotic Form, Diverticulitis (ED), Diverticulitis Diet (ED) Additional Instructions: You have acute diverticulitis of the sigmoid colon without any signs of complication, abscess formation or free air. Will treat this with oral antibiotics for the next several days. Take antibiotics as prescribed and maintain a low fiber and liquid diet for the next 5-10 days for symptom improvement and control. Return if you start noticing worsening symptoms, intractable fevers, worsening pain, inability to tolerate oral intake, bloody diarrhea or any other concerning findings. Patient Language: Montenegrin Prescriptions: New ciprofloxacin HCl [Cipro] 500 mg tablet 500 mg PO Q12H 7 Days Qty: 14 0RF metronidazole 500 mg tablet 500 mg PO Q8H 7 Days Qty: 21 0RF No Action pantoprazole 40 mg tablet,delayed release (DR/EC) 40 mg PO DAILY albuterol sulfate 90 mcg/actuation HFA aerosol inhaler 2 puff inhalation TID PRN (Reason: shortness of breath or wheezing) Qty: 6.7 0RF testosterone cypionate 200 mg/mL oil 200 mg IM WEEKLY fexofenadine-pseudoephedrine [Dora-D 24 Hour] 180-240 mg tablet extended release 24 hr 1 tablet PO .every other day azelastine 137 mcg (0.1 %) aerosol,spray 1 spray intranasal BID tadalafil 5 mg Tablet 5 mg PO DAILY naproxen 500 mg tablet 500 mg PO BID PRN (Reason: pain) Qty: 180 1RF Follow-up/Referrals: Trudy Little LABOR UTILIZATION SUPERINTENDENT [Primary Care Provider] - Time of Disposition: 21:21
[2025-04-17] MEDS: CIPROFLOXACIN 400 MG/D5W 200ML 200 ML 200 MG IVPB (21:30)
== END 2025-04-17 23:01 | disposition home or self-care (01) ==
PROVIDERS: Emergency Provider Student in an Organized Health Care Education/Training Program; PCP Nurse Practitioner
DX: K57.32 Diverticulitis of large intestine without perforation or abscess without bleeding (principal); J45.909 Unspecified asthma, uncomplicated; K21.9 Gastro-esophageal reflux disease without esophagitis; G47.30 Sleep apnea, unspecified; G47.10 Hypersomnia, unspecified; F41.1 Generalized anxiety disorder; F17.210 Nicotine dependence, cigarettes, uncomplicated; K76.0 Fatty (change of) liver, not elsewhere classified; Z79.899 Other long term (current) drug therapy
CPT/HCPCS: 36415; 74177; 80053; 81001; 83690; 85025; 96365; 99284; A9270; J0744; Q9967

== ENCOUNTER 2025-04-23 15:53 | Emergency (ER) | payer BC, SELFPAY ==
[2025-04-23 15:57] VITALS: BP 154/94; PULSE 85; RESP 16; TEMP 36.9; O2SAT 99
--- NOTE | 2025-04-23 19:18 | ED_ITS ---
HPI - General Adult General Chief complaint: Unspecified Stated complaint: Allergic Reaction Time Seen by Provider: 04/23/25 16:16 Source: patient, RN notes reviewed and old records reviewed (ED notes) Mode of arrival: ambulatory Limitations: no limitations History of Present Illness HPI narrative: Patient presents today complaining of a possible allergic reaction to ciprofloxacin. He was started on the Cipro on 04/17/2025 in the emergency department at [facility] after being diagnosed with diverticulitis. States that he has been feeling flushed and hot in the forearms, neck, and face approximately 2 hours after taking the doses as well as feeling that his neck lymph nodes are swollen. His last dose was yesterday morning around 10:00 a.m. and states he has resolution of these symptoms when he takes Benadryl. Four days ago he was feeling run down with body aches and went to an urgent care and was subsequently diagnosed with influenza a and started on Tamiflu. Patient called his PCPs office regarding the flushing and feeling hot, and states he was told he needed to be evaluated to make sure he was not having an anaphylactic reaction. He is very concerned because he states he was told that anaphylaxis can have a delayed onset. He denies any current abdominal pain, nausea or vomiting, diarrhea, bloody stools, fever Related Data Home Medications ?Medication ?Instructions ?Recorded ?Confirmed ?Last Taken ?Type fexofenadine-pseudoephedrine ER 1 tablet PO .every other day 10/07/23 05/18/24 Unknown History 180 mg-240 mg tablet,ext.release 24 hr (Dora-D 24 Hour) testosterone cypionate 200 mg/mL 200 mg IM WEEKLY 10/07/23 05/18/24 Unknown History intramuscular oil azelastine 137 mcg (0.1 %) nasal 1 spray intranasal BID 10/26/23 05/18/24 Unknown History spray pantoprazole 40 mg tablet,delayed 40 mg PO DAILY 01/10/24 05/18/24 Unknown History release tadalafil 5 mg tablet 5 mg PO DAILY 01/12/24 05/18/24 Unknown History oseltamivir 75 mg capsule mg 04/23/25 Unknown History Allergies Allergy/AdvReac Type Severity Reaction Status Date / Time ciprofloxacin (From Cipro) Allergy Intermediate Flushing Verified 04/23/25 16:52 PMFSH Past Medical History Medical History Dizziness Excessive somnolence disorder Sleep apnea Generalized anxiety disorder Asthma Seasonal allergies Sinus infection Diverticulitis C. difficile enteritis GERD (gastroesophageal reflux disease) Surgical History Surgical History Hx of hand surgery fracture and repair of right middle finger History of rectal surgery perirectal abscess surgical procedure Family History Family History Mother Cerebrovascular accident Breast cancer Grandparent Acute myocardial infarction Father Rheumatoid arthritis Lung cancer Social History Social History Social History: Caffeine-coffee Smoking packs per day: 1 Smoking cigarettes per day: 20.0 Years smoked: 20 Smoking pack-years: 20.00 Smoking status: Heavy tobacco smoker Tobacco type: cigarettes Alcohol intake: current Alcohol use details: rare Substance use: never Substance use type: does not use Do You Feel Safe in your Home?: Yes Lack of Transportation: No Lack of Food: Never True Current Housing: I Have Housing Concerned About Future Housing: No Difficulty Paying Gas/Electric Bills: No Difficulty Paying for Meds: No Currently Unemployed: No Education: High School Diploma/GED Difficulty w/ Childcare or Family Care: No Living arrangements: alone Gender identity (if verbalized by the patient): Male Spiritual care concerns: No Comments At time of signature, I have reviewed and agree with nursing past medical, surgical, social and family history unless otherwise noted. Please see nursing chart for further information. There is no relevant family history pertinent to the presenting complaint Exam Narrative: GENERAL: Well-appearing, well-nourished, and in no acute distress. HEAD: Normocephalic, atraumatic. EYES: EOMI. No redness or drainage. Conjunctivae normal. ENT: Mucous membranes pink and moist. Nares clear. No rhinorrhea. TMs normal bilaterally. Throat normal. Uvula midline. NECK: Normal AROM. Supple. No lymphadenopathy. CHEST: No respiratory distress. Clear to auscultation. HEART: Regular rate and rhythm. No murmur appreciated. ABDOMEN: Soft, nontender, nondistended, normal active bowel sounds. MUSCULOSKELETAL: No bony tenderness. EXTREMITIES: Normal range of motion. No edema. SKIN: Warm, dry, no rash. Capillary refill normal. Normal skin turgor. NEURO: No focal deficits. Alert and oriented x3. Gait steady. PSYCH: Normal affect. No signs of depression or anxiety. Course Course Level of Care: Express Care Visit Vital Signs Vital signs: Vital Signs Temperature 98.5 F 04/23/25 15:57 Pulse Rate 85 04/23/25 15:57 Respiratory Rate 16 04/23/25 15:57 Blood Pressure 154/94 H 04/23/25 15:57 Pulse Oximetry 99 04/23/25 15:57 Oxygen Delivery Room Air 04/23/25 15:57 Temperature 98.5 F 04/23/25 15:57 Pulse Rate 85 04/23/25 15:57 Respiratory Rate 16 04/23/25 15:57 Blood Pressure 154/94 H 04/23/25 15:57 Pulse Oximetry 99 04/23/25 15:57 Oxygen Delivery Room Air 04/23/25 15:57 Reviewed Medical Decision Making MDM Narrative Medical decision making narrative: 44-year-old male patient presenting with a possible allergic reaction to ciprofloxacin. His last dose was yesterday morning approximately 36 hours ago. Patient is concerned that he could have a delayed anaphylactic reaction. Discussed specific half-life of Cipro with patient (12-30 hours) and provided reassurance. Did discuss with patient regarding Cipro use and tendinopathies as he works for himself lifting heavy objects/building [employer]. Instructed patient to stop the Cipro, and not start the Flagyl as he has not yet started it. He will be started on some Augmentin as an alternative for his diverticulitis. Cipro has been added to EMR allergy list as well. Instructed him to advise pharmacy as well. His vital signs are stable. He is having no abdominal pain or any other symptoms that would warrant an ER transfer at this time, but cautions given. Differential Diagnosis Differential Diagnosis: Allergic reaction to medication, influenza, diverticulitis Vital Signs Vital Signs: Vital Signs Temperature 98.5 F 04/23/25 15:57 Pulse Rate 85 04/23/25 15:57 Respiratory Rate 16 04/23/25 15:57 Blood Pressure 154/94 H 04/23/25 15:57 Pulse Oximetry 99 04/23/25 15:57 Oxygen Delivery Room Air 04/23/25 15:57 Temperature 98.5 F 04/23/25 15:57 Pulse Rate 85 04/23/25 15:57 Respiratory Rate 16 04/23/25 15:57 Blood Pressure 154/94 H 04/23/25 15:57 Pulse Oximetry 99 04/23/25 15:57 Oxygen Delivery Room Air 04/23/25 15:57 Critical Care Time Critical Care Time Critical Care Time: No Discharge Plan Discharge Clinical Impression: Allergic reaction due to antibacterial drug Patient Disposition: Home Condition: Stable Additional Instructions: Please stop the Cipro and Flagyl. Start the Augmentin and take as directed. Follow-up with your PCP with any additional concerns. Your blood pressure was elevated above 120/80 today at Urgent Care. This puts you above the threshold for follow up. Please schedule a followup visit with your personal physician as soon as possible, for further evaluation and treatment. Even blood pressure exceeding 120/80 may indicate pre-hypertension. Patient Language: Malay Prescriptions: New amoxicillin-pot clavulanate 875-125 mg tablet 1 tablet PO TID 5 Days Qty: 15 0RF No Action oseltamivir 75 mg capsule pantoprazole 40 mg tablet,delayed release (DR/EC) 40 mg PO DAILY albuterol sulfate 90 mcg/actuation HFA aerosol inhaler 2 puff inhalation TID PRN (Reason: shortness of breath or wheezing) Qty: 6.7 0RF testosterone cypionate 200 mg/mL oil 200 mg IM WEEKLY fexofenadine-pseudoephedrine [Dora-D 24 Hour] 180-240 mg tablet extended release 24 hr 1 tablet PO .every other day azelastine 137 mcg (0.1 %) aerosol,spray 1 spray intranasal BID tadalafil 5 mg Tablet 5 mg PO DAILY ciprofloxacin HCl [Cipro] 500 mg tablet 500 mg PO Q12H 7 Days Qty: 14 0RF metronidazole 500 mg tablet 500 mg PO Q8H 7 Days Qty: 21 0RF naproxen 500 mg tablet 500 mg PO BID PRN (Reason: pain) Qty: 180 1RF Follow-up/Referrals: Trudy Little, IMMIGRATION SPECIALIST [Primary Care Provider] - Time of Disposition: 16:52
== END 2025-04-23 16:56 | disposition home or self-care (01) ==
PROVIDERS: Emergency Provider Nurse Practitioner; PCP Nurse Practitioner
DX: R23.2 Flushing (principal); T36.8X5A Adverse effect of other systemic antibiotics, initial encounter; J45.909 Unspecified asthma, uncomplicated; K21.9 Gastro-esophageal reflux disease without esophagitis; F17.210 Nicotine dependence, cigarettes, uncomplicated
CPT/HCPCS: 99213; G0463

== ENCOUNTER 2025-08-16 14:49 | Outpatient (CLI) | payer BC, SELFPAY ==
--- NOTE | ~2025-08-16 | XR_ITS ---
XR cervical spine 4-5V Indication: Radiculopathy, cervical region, pain x 3 weeks, Comparison: None Findings: No fracture identified, no subluxation flexion-extension The disc heights are intact. Soft tissues unremarkable Impression: No acute abnormality. Reviewed, dictated and finalized at location P. Impression: No acute abnormality.
== END 2025-08-16 14:50 | disposition home or self-care (01) ==
LOC: GOSHIMG 14:54
PROVIDERS: PCP Nurse Practitioner; Visit Provider Nurse Practitioner
DX: M54.12 Radiculopathy, cervical region (principal)
CPT/HCPCS: 72050

== ENCOUNTER 2025-09-03 10:00 | Outpatient (CLI) | payer BC, SELFPAY ==
--- NOTE | ~2025-09-03 | MR_ITS ---
EXAMINATION: MR cervical spine wo con DATE: 09/03/2025 10:33 INDICATION: Cervical radiculopathy TECHNIQUE: Magnetic resonance imaging (MRI) of the cervical spine was performed without intravenous contrast. Sequences included sagittal T2-weighted FSE, sagittal T2-weighted FS FSE, sagittal T1-weighted FSE, axial MERGE and axial T2- weighted FSE. COMPARISON: None FINDINGS: 12 degrees upper thoracic levoscoliosis. Cervical alignment is normal. Vertebral body heights are normal. Bone marrow signal intensity is normal. Intervertebral disc heights are normal. Cord signal intensity is normal. Cervical soft tissues are unremarkable. The following disc levels are specifically discussed: C2-C3: The disc does not extend beyond the endplate margin. There is no uncovertebral joint osteoarthritis. There is mild right and moderate left facet joint osteoarthritis. There is mild left neural foraminal stenosis. There is no central canal stenosis. C3-C4: The disc does not extend beyond the endplate margin. There is mild bilateral uncovertebral joint osteoarthritis. There is severe bilateral facet joint osteoarthritis. There is mild left and moderate right neural foraminal stenosis. There is no central canal stenosis. C4-C5: The disc does not extend beyond the endplate margin. There is mild bilateral uncovertebral joint osteoarthritis. There is moderate right and severe left facet joint osteoarthritis. There is mild right and moderate left neural foraminal stenosis. There is no central canal stenosis. C5-C6: The disc does not extend beyond the endplate margin. There is mild bilateral uncovertebral joint osteoarthritis. There is mild right and severe left facet joint osteoarthritis. There is minimal right and moderate left neural foraminal stenosis. There is no central canal stenosis. C6-C7: Mild left paracentral disc protrusion. There is mild left uncovertebral joint osteoarthritis. There is mild bilateral facet joint osteoarthritis. There is mild left neural foraminal stenosis. There is minimal central canal stenosis. C7-T1: The disc does not extend beyond the endplate margin. There is mild left uncovertebral joint osteoarthritis. There is mild right and moderate left facet joint osteoarthritis. There is minimal left neural foraminal stenosis. There is no central canal stenosis. IMPRESSION: 1. Minimal cervical spondylosis with mild to moderate uncovertebral and moderate and severe facet osteoarthritis at a few levels on the left and right as detailed above. Reviewed, dictated and finalized at location A. MOBILE IMPRESSION: 1. Minimal cervical spondylosis with mild to moderate uncovertebral and moderat e and severe facet osteoarthritis at a few levels on the left and right as deta iled above.
== END 2025-09-03 10:01 | disposition home or self-care (01) ==
PROVIDERS: PCP Nurse Practitioner; Visit Provider Nurse Practitioner
DX: M47.22 Other spondylosis with radiculopathy, cervical region (principal)
CPT/HCPCS: 72141